=== PATIENT | female | born 1975 | race Caucasian/White ===

== ENCOUNTER 2016-12-27 04:20 | Inpatient (IN) | payer OTHER, MEDICARE ==
[~2016-12-27] VITALS: Ht 162.6 cm; Wt 100.8 kg
[2016-12-27] VITALS (24 sets, daily range): BP systolic 66–152; BP diastolic 28–82; PULSE 89–109; RESP 16–24; TEMP 98–101.1; O2SAT 89–100
[2016-12-27] MEDS ORDERED: NALOXONE HCL 2 MG/2 ML VIAL ONE ×3 (04:24→04:27)
[2016-12-27] MEDS ORDERED: DOPamine INJ PREMIX 500 ML ONE (04:28)
[2016-12-27] MEDS ORDERED: DOPamine INJ PREMIX 500 ML IV ONE (05:00)
[2016-12-27] MEDS ORDERED: DEXTROSE 50% IN WATER 50 ML SYRINGE IV ONE (05:00)
[2016-12-27] MEDS ORDERED: EPINEPHrine HCL (1:10,000) 1 MG/10 ML SYRINGE IV ONE (05:00)
[2016-12-27] MEDS ORDERED: SODIUM CHLORIDE 0.9% FLUSH 10 ML FLUSH IVF PRN (05:15)
[2016-12-27 05:36] LABS: AUTOMATED NEUTROPHIL # 8.6 TH/MM3 (1.8-7.7); BASOPHIL % 0.2 % (0.0-2.0); HEMATOCRIT 34.5 % (35.0-46.0); HEMOGLOBIN 10.9 GM/DL (11.6-15.3); INTERNATIONAL NORMALIZED RATIO 1.8 RATIO; LYMPHOCYTE # 1.8 TH/MM3 (1.0-4.8); MEAN CELL VOLUME 85.9 FL (80.0-100.0); MEAN CORPUSCULAR HEMOGLOBIN 27.1 PG (27.0-34.0); MEAN CORPUSCULAR HGB CONC 31.6 % (32.0-36.0); MEAN PLATELET VOLUME 8.6 FL (7.0-11.0); MONO % 7.2 % (0.0-8.0); MONOCYTE # 0.8 TH/MM3 (0-0.9); NEUT % 76.6 % (16.0-70.0); PLATELET COUNT 136 TH/MM3 (150-450); PROTHROMBIN TIME - PATIENT 20.6 SEC (9.8-11.6); RED BLOOD COUNT 4.02 MIL/MM3 (4.00-5.30); RED CELL DISTRIBUTION WIDTH 15.9 % (11.6-17.2); WHITE BLOOD COUNT 11.2 TH/MM3 (4.0-11.0)
[2016-12-27 05:40] LABS: BACTERIA, URINE RARE /hpf; BILIRUBIN, URINE NEG (NEG); BLOOD, URINE MOD (NEG); GLUCOSE,URINE NEG (NEG); HYALINE CAST, URINE 9 /lpf (RARE); KETONE, URINE NEG (NEG); NITRITE,URINE NEG (NEG); SQUAMOUS EPITHELIAL CELL URINE 2 /hpf (0-5); URINE COLOR YELLOW (YELLW/STRAW); URINE LEUKOCYTE ESTERASE NEG (NEG)
--- NOTE | 2016-12-27 05:57 | RADRPT ---
EXAM DATE/TIME: 12/27/2016 05:11 [facility] COMPARISON: No previous studies available for comparison. INDICATIONS : Pt found unresponsive. Post Intubation MEDICAL HISTORY : Unobtainable SURGICAL HISTORY : Unobtainable ENCOUNTER: Initial ACUITY: 1 day PAIN SCORE: Non-responsive. LOCATION: Bilateral chest FINDINGS: A single view of the chest demonstrates the lungs to be symmetrically aerated without evidence of mas s, infiltrate or effusion. An endotracheal tube is in place with the tip approximately a nasogastric tube is seen coursing through the esophagus into the stomach. There are multiple overlying electrocar diogram leads. The cardiomediastinal contours are unremarkable. Osseous structures are intact. CONCLUSION: 1. Intubation and placement of nasogastric tube. 2. No acute cardiopulmonary disease. Daron Humphrey MD on December 27, 2016 at 5:55 Board Certified Radiologist. This report was verified electronically.
[2016-12-27 06:01] LABS: ACETAMINOPHEN 5.3 MCG/ML (10.0-30.0); ALBUMIN 2.6 GM/DL (3.4-5.0); ALKALINE PHOSPHATASE 135 U/L (45-117); ALT (GPT) 742 U/L (10-53); AST (GOT) 1646 U/L (15-37); BICARBONATE 21.9 MEQ/L (21.0-32.0); BLOOD UREA NITROGEN 16 MG/DL (7-18); CALCIUM-PROTEIN CORRECTED 7.8 MG/DL (8.5-10.1); CHLORIDE 106 MEQ/L (98-107); CREATININE 3.39 MG/DL (0.50-1.00); GLOMERULAR FILTRATION RATE 12 ML/MIN (>89); SODIUM (NA) 141 MEQ/L (136-145); TOTAL BILIRUBIN ADULT 0.2 MG/DL (0.2-1.0); TOTAL PROTEIN 5.5 GM/DL (6.4-8.2)
[2016-12-27 06:04] LABS: GLUCOSE,RANDOM 28 MG/DL (74-106)
[2016-12-27] MEDS ORDERED: DEXT 5%-NACL 0.9% 1000 ML INJ 1,000 ML IV SCH (06:15)
--- NOTE | 2016-12-27 06:36 | RADRPT ---
EXAM DATE/TIME: 12/27/2016 05:53 [facility] COMPARISON: No previous studies available for comparison. INDICATIONS : Altered mental status. Found unresponsive. RADIATION DOSE: <15.51>> CTDIvol (mGy) MEDICAL HISTORY : Substance abuse. SURGICAL HISTORY : None. ENCOUNTER: Initial ACUITY: 1 day PAIN SCALE: Non-responsive LOCATION: cranial TECHNIQUE: Multiple contiguous axial images were obtained of the head. Using automated exposure control and adj ustment of the mA and/or kV according to patient size, radiation dose was kept as low as reasonably a chievable to obtain optimal diagnostic quality images. DICOM format image data is available electro nically for review and comparison. FINDINGS: CEREBRUM: The ventricles are normal for age. No evidence of midline shift, mass lesion, hemorrhage or acute in farction. No extra-axial fluid collections are seen. POSTERIOR FOSSA: The cerebellum and brainstem are intact. The 4th ventricle is midline. The cerebellopontine angle i s unremarkable. EXTRACRANIAL: The visualized portion of the orbits is intact. SKULL: The calvaria is intact. No evidence of skull fracture. CONCLUSION: Normal examination. Daron Humphrey MD on December 27, 2016 at 6:34 Board Certified Radiologist. This report was verified electronically.
--- NOTE | 2016-12-27 06:40 | PD ---
HPI Chief Complaint: OD/ Ingestion Time Seen by Provider: 05:06 Travel History International Travel<30 days: No Contact w/Intl Traveler<30days: No Traveled to known affect area: No History of Present Illness HPI Young adult female presents to the emergency department from home by EMS transport after family member found her face down in bed and then several hours later rechecked on her again and she remained facedown in bed and was noted to have saliva and possible stomach contents about her mouth. Paramedics were called and found the patient to be unresponsive and with agonal respirations with palpable faint pulse and immediately intubated the patient. Patient was transported to the emergency department with a right external jugular IV access and intubation. Paramedics report no rhythm disturbance by cardiac monitoring en route. Patient with history of IV drug/substance abuse. Unknown possible substance ingestion. Other history not available. [facility] Past Medical History Narrative Medical Unknown Medical History: Unable to Obtain Tetanus Vaccination: Unknown Influenza Vaccination: No ?: Unknown Past Surgical History Surgical History: Unable to Obtain Social History Alcohol Use: No Tobacco Use: No Substance Use: Yes Allergies-Medications (Allergen,Severity, Reaction): Coded Allergies: No Known Allergies (Unverified , 12/27/16) Narrative Medication Unknown Review of Systems ROS Limitations: Clinical Condition, Intubated, Unresponsive Except as stated in HPI: all other systems reviewed are Neg Physical Exam Narrative GENERAL: Well-developed well-nourished female unresponsive, intubated; GCS 3 SKIN: Cool and dry. HEAD: Normocephalic. Atraumatic no scalp soft tissue swelling or ecchymosis or abrasion or laceration. EYES: No scleral icterus. No injection or drainage. Bilateral pupils dilated nonreactive NECK: Supple, trachea midline. No JVD or lymphadenopathy. CARDIOVASCULAR: Regular rate and rhythm without murmurs, gallops, or rubs. RESPIRATORY: Breath sounds equal bilaterally heard with AMBU assisted ventilations bilaterally. GASTROINTESTINAL: Abdomen soft, nondistended. No gastric sounds with AMBU assisted ventilations. MUSCULOSKELETAL: No cyanosis, or edema. Data Data Last Documented VS Vital Signs Date Time Temp Pulse Resp B/P (MAP) Pulse Ox O2 Delivery O2 Flow Rate FiO2 12/27/16 05:10 100 60 12/27/16 05:05 16 Ventilator 12/27/16 05:00 89 12/27/16 04:20 15.00 Orders Orders Naloxone Inj (Narcan Inj) (12/27/16 04:24) Naloxone Inj (Narcan Inj) (12/27/16 04:24) Naloxone Inj (Narcan Inj) (12/27/16 04:27) Dopamine Inj Premix (Dopamine Inj Premix (12/27/16 04:28) Electrocardiogram (12/27/16 05:08) Complete Blood Count With Diff (12/27/16 05:08) Comprehensive Metabolic Panel (12/27/16 05:08) Prothrombin Time / Inr (Pt) (12/27/16 05:08) Act Partial Throm Time (Ptt) (12/27/16 05:08) Urinalysis - C+S If Indicated (12/27/16 05:08) Chest, Single Ap (12/27/16 05:08) Ct Brain W/O Iv Contrast(Rout) (12/27/16 05:08) Arterial Blood Gas (Abg) (12/27/16 05:08) Blood Glucose (12/27/16 05:08) Iv Access Insert/Monitor (12/27/16 05:08) Ecg Monitoring (12/27/16 05:08) Oximetry (12/27/16 05:08) Sodium Chloride 0.9% Flush (Ns Flush) (12/27/16 05:15) Drug Screen, Random Urine (12/27/16 05:08) Alcohol (Ethanol) (12/27/16 05:08) Salicylates (Aspirin) (12/27/16 05:08) Tylenol (Acetaminophen) (12/27/16 05:08) Propofol 1000 Mg/100 Ml Inj (Diprivan 10 (12/27/16 05:15) Neurological Rass Scale Q30MX2,Q2HX4,Q4H (12/27/16 05:08) Admit Order (Ed Use Only) (12/27/16 ) Calciner Operator Helper / Telemetry RADHA.Q8H (12/27/16 05:45) Activity Bed Rest (12/27/16 05:45) Notify Dr: Other (12/27/16 05:45) Labs Laboratory Tests Test 12/27/16 04:56 12/27/16 05:10 Blood Gas Ventilator Setting White Blood Count 11.2 TH/MM3 Red Blood Count 4.02 MIL/MM3 Hemoglobin 10.9 GM/DL Hematocrit 34.5 % Mean Corpuscular Volume 85.9 FL Mean Corpuscular Hemoglobin 27.1 PG Mean Corpuscular Hemoglobin Concent 31.6 % Red Cell Distribution Width 15.9 % Platelet Count 136 TH/MM3 Mean Platelet Volume 8.6 FL Neutrophils (%) (Auto) 76.6 % Lymphocytes (%) (Auto) 16.0 % Monocytes (%) (Auto) 7.2 % Eosinophils (%) (Auto) 0.0 % Basophils (%) (Auto) 0.2 % Neutrophils # (Auto) 8.6 TH/MM3 Lymphocytes # (Auto) 1.8 TH/MM3 Monocytes # (Auto) 0.8 TH/MM3 Eosinophils # (Auto) 0.0 TH/MM3 Basophils # (Auto) 0.0 TH/MM3 CBC Comment AUTO DIFF Differential Comment AUTO DIFF CONFIRMED Prothrombin Time 20.6 SEC Prothromb Time International Ratio 1.8 RATIO Activated Partial Thromboplast Time 37.8 SEC Urine Color YELLOW Urine Turbidity HAZY Urine pH 6.0 Urine Specific [place] 1.011 Urine Protein 30 mg/dL Urine Glucose (UA) NEG mg/dL Urine Ketones NEG mg/dL Urine Occult Blood MOD Urine Nitrite NEG Urine Bilirubin NEG Urine Urobilinogen LESS THAN 2.0 MG/DL Urine Leukocyte Esterase NEG Urine RBC LESS THAN 1 /hpf Urine WBC 4 /hpf Urine Squamous Epithelial Cells 2 /hpf Urine Bacteria RARE /hpf Urine Hyaline Casts 9 /lpf Microscopic Urinalysis Comment CULT NOT INDICATED Blood Urea Nitrogen 16 MG/DL Creatinine 3.39 MG/DL Random Glucose 28 MG/DL Total Protein 5.5 GM/DL Albumin 2.6 GM/DL Calcium Level 7.0 MG/DL Alkaline Phosphatase 135 U/L Aspartate Amino Transf (AST/SGOT) 1646 U/L Alanine Aminotransferase (ALT/SGPT) 742 U/L Total Bilirubin 0.2 MG/DL Sodium Level 141 MEQ/L Potassium Level 5.5 MEQ/L Chloride Level 106 MEQ/L Carbon Dioxide Level 21.9 MEQ/L Anion Gap 13 MEQ/L Estimat Glomerular Filtration Rate 12 ML/MIN Protein Corrected Calcium 7.8 MG/DL Salicylates Level 2.7 MG/DL Urine Opiates Screen NEG Acetaminophen Level 5.3 MCG/ML Urine Barbiturates Screen POS Urine Amphetamines Screen NEG Urine Benzodiazepines Screen POS Urine Cocaine Screen NEG Urine Cannabinoids Screen NEG Ethyl Alcohol Level LESS THAN 3 MG/DL MDM Medical Decision Making Medical Screen Exam Complete: Yes Emergency Medical Condition: Yes Medical Record Reviewed: Yes Interpretation(s) Last Impressions Head CT 12/27/16507 Signed Impressions: Service Date/Time: Tuesday, December 27, 2016 05:53 - CONCLUSION: Normal examination. Daron Humphrey MD Chest X-Ray 12/27/16507 Signed Impressions: Service Date/Time: Tuesday, December 27, 2016 05:11 - CONCLUSION: 1. Intubation and placement of nasogastric tube. 2. No acute cardiopulmonary disease. Daron Humphrey MD CBC & BMP Diagram 12/27/16 05:10 Total Protein 5.5 L, Albumin 2.6 L, Calcium Level 7.0 *L, Alkaline Phosphatase 135 H, Aspartate Amino Transf (AST/SGOT) 1646 H, Alanine Aminotransferase (ALT/ SGPT) 742 H, Total Bilirubin 0.2 Vital Signs Date Time Temp Pulse Resp B/P (MAP) Pulse Ox O2 Delivery O2 Flow Rate FiO2 12/27/16 05:10 100 60 12/27/16 05:05 16 98 Ventilator 100 12/27/16 05:00 89 18 152/82 (105) Ventilator 100 12/27/16 04:45 96 18 145/73 (97) Ventilator 100 12/27/16 04:30 98 18 95/50 (65) Ventilator 100 12/27/16 04:25 97 100 12/27/16 04:20 66/28 (41) 12/27/16 04:20 Bag Valve 15.00 Differential Diagnosis Respiratory arrest, arrhythmia, polysubstance overdose intentional versus unintentional, hypoglycemia, hypovolemic shock, septic shock Narrative Course Patient patient arrived intubated via EMS personnel while on EMS stretcher breath sounds were auscultated bilaterally without gastric sounds and patient was transferred to the ED stretcher again with good breath sounds to auscultation and no gastric sounds; patient in sinus rhythm on youth nutritional monitor however no palpable pulse carotid or femoral therefore compressions were initiated patient was administered 1 amp of epinephrine IV with ongoing compressions, 2 mg of Narcan administered and subsequently palpable pulses were noted however patient remained hypotensive dopamine initiated; additional IV access obtained via the left external jugular and central line set up for insertion. Patient was also noted to have bedside glucose of 30 and received 1 amp of D50. Patient showed spontaneous withdrawing movement. Central line insertion performed and placed in the right femoral vein ABG left femoral artery showed patient to have pH of 7.18 with PO2 of 455 and PCO2 35 Lab notified staff serum glucose 28 patient already received 1 amp D50 during resuscitative efforts repeat glucose 119 Critical Care Narrative Aggregate critical care time was 35 minutes. Time to perform other separately billable procedures was not included in the critical care time. My time did not include minutes spent treating any other patients simultaneously or on activities that did not directly contribute to the patient's treatment. The services I provided to this patient were to treat and/or prevent clinically significant deterioration that could result in: arrhythmia, cardiac arrest, I provided critical care services requiring my management, as noted below: Chart data review, documentation time, medication orders and management, vital sign assessments/reviewing monitor data, ordering and reviewing lab tests, ordering and interpreting/reviewing x-rays and diagnostic studies, care of the patient and discussion of the patient with the admitting physicians. Procedures Procedure Narrative CENTRAL VENOUS LINE: The site was prepped with Betadine and sterilely draped. It was infiltrated with 1% lidocaine plain. The deep vein was cannulated using normal Seldinger technique. A triple lumen central line was placed in the right femoral vein site and secured with simple interrupted suture. The site was sterilely dressed. The patient tolerated the procedure well. EKG Prior to Arrival: No Physician Communication Physician Communication Patient discussed with Dr. Jarrett-admit to ICU service Diagnosis Primary Impression: Respiratory arrest Additional Impressions: Polysubstance overdose Qualified Codes: T50.904A - Poisoning by unspecified drugs, medicaments and biological substances, undetermined, initial encounter Hypoglycemia Acute metabolic encephalopathy Acute kidney injury Admitting Information Admitting Physician Requests: Admit Doretha Moncada MD Dec 27, 2016 06:40
[2016-12-27] MEDS ORDERED: TERBUTALINE INJ 1 MG/ML AMP SQ PRN ×2 (07:00→11:00)
[2016-12-27] MEDS ORDERED: DOPamine INJ PREMIX 500 ML IV PRN (07:00)
[2016-12-27] MEDS ORDERED: NALOXONE HCL 2 MG/2 ML VIAL IV PUSH ONE (07:00)
[2016-12-27] MEDS ORDERED: SODIUM CHLOR 0.9% 1000 ML INJ 1,000 ML IV STA (07:14)
[2016-12-27] MEDS ORDERED: CHLORHEXIDINE GLUCONATE 2 % 1 PACK (2 CLOTHS) TOP PRN (07:15)
[2016-12-27] MEDS ORDERED: RESP: ALBUTEROL 2.5 MG/IPRATROPIUM 0.5 MG NEB (PRN) INH (07:15)
[2016-12-27] MEDS ORDERED: MISCELLANEOUS NURSING INFORMATION XX SCH (07:15)
[2016-12-27] MEDS ORDERED: SODIUM CHLOR 0.9% 1000 ML INJ 1,000 ML IV ONE ×3 (07:15→11:00)
[2016-12-27] MEDS ORDERED: SODIUM CHLORIDE 0.9% FLUSH 10 ML FLUSH IV FLUSH PRN (07:15)
[2016-12-27] MEDS ORDERED: CALCIUM GLUCONATE INJ 2 GM in DEXTROSE 5% IN WATER 100ML INJ 100 ML IV ONE ×2 (07:30)
[2016-12-27] MEDS: PROPOFOL 1000 MG/100 ML INJ 100 ML IV PRN (08:00)
[2016-12-27] MEDS ORDERED: FAMOTIDINE 20 MG TAB OG-TUBE SCH (09:00)
[2016-12-27] MEDS ORDERED: PILL SPLITTER OTHER PRN (09:15)
[2016-12-27] MEDS ORDERED: DEXTROSE 50% IN WATER 50 ML VIAL(D50) IV PUSH PRN (09:30)
[2016-12-27] MEDS ORDERED: GLUCAGON 1 MG/ML VIAL OTHER PRN (09:30)
[2016-12-27] MEDS: RESP: ALBUTEROL 2.5 MG/IPRATROPIUM 0.5 MG NEB (SCH) NEB ×3 (09:35→20:11)
[2016-12-27] MEDS: INSULIN NovoLIN REGULAR SUPPLEMENTAL SCALE SQ SCH ×7 (10:00→22:00)
[2016-12-27] MEDS: SODIUM POLYSTYRENE SULFONATE SUSP 15 GM/60 ML CUP OG-TUBE SCH ×4 (10:03→15:17)
[2016-12-27] MEDS: SODIUM CHLORIDE 0.9% FLUSH 10 ML FLUSH IV FLUSH SCH ×2 (10:03→21:25)
[2016-12-27] MEDS: FAMOTIDINE 20 MG TAB OG-TUBE SCH ×2 (10:05→21:23)
[2016-12-27] MEDS: CHLORHEXIDINE 0.12% (ORAL KIT) 15 ML CUP MT SCH ×2 (10:07→21:23)
[2016-12-27 10:10] LABS: AUTOMATED NEUTROPHIL # 20.2 TH/MM3 (1.8-7.7); BASOPHIL % 0.1 % (0.0-2.0); HEMATOCRIT 43.2 % (35.0-46.0); HEMOGLOBIN 13.9 GM/DL (11.6-15.3); LYMPH % 12.4 % (9.0-44.0); LYMPHOCYTE # 3.1 TH/MM3 (1.0-4.8); MEAN CELL VOLUME 84.5 FL (80.0-100.0); MEAN CORPUSCULAR HEMOGLOBIN 27.2 PG (27.0-34.0); MEAN CORPUSCULAR HGB CONC 32.2 % (32.0-36.0); MEAN PLATELET VOLUME 8.9 FL (7.0-11.0); MONO % 5.7 % (0.0-8.0); MONOCYTE # 1.4 TH/MM3 (0-0.9); NEUT % 81.8 % (16.0-70.0); PLATELET COUNT 161 TH/MM3 (150-450); RED BLOOD COUNT 5.11 MIL/MM3 (4.00-5.30); RED CELL DISTRIBUTION WIDTH 15.6 % (11.6-17.2); WHITE BLOOD COUNT 24.7 TH/MM3 (4.0-11.0)
[2016-12-27 10:34] LABS: ALBUMIN 2.9 GM/DL (3.4-5.0); BICARBONATE 17.9 MEQ/L (21.0-32.0); CALCIUM 6.5 MG/DL (8.5-10.1); CREATININE 3.54 MG/DL (0.50-1.00)
--- NOTE | 2016-12-27 10:36 | MH ---
cc: IBAN CARTER DATE OF ADMISSION: 12/27/2016 HISTORY OF PRESENT ILLNESS The patient is a young adult female with unknown past medical history, who presented to [facility] ED by EMS after family found her face down in bed for several hours. When paramedics arrived they found the patient unresponsive with agonal respirations and faint palpable pulse. She was immediately intubated and transported to the ED. She has a history of IV and polysubstance abuse. On arrival to the ER the patient was hypotensive and tachycardic. She was given total 3 liters of crystalloids. Her urine drug screen was positive for benzodiazepines and barbiturates. Her laboratory data is significant for hypoglycemia with a blood sugar level of 28, acute renal failure with creatinine 3.39. In addition the patient had significant elevation in liver enzymes with AST 1646, ALT 742 with a total bilirubin 0.2. Also she was found to be in rhabdo with total CKs of 10,574. Her blood sugar fingerstick in the ED was 33 and she was subsequently given 1 amp of D50. In the ER the patient did not have a pulse and she received 1 minute of CPR in addition to epi x1 with successful return of spontaneous circulation. When seen she was able to open up her eyes to voice. Due to hypotension she was started on dopamine which is currently at 10 mics. The patient also received 2 mg IV of Narcan. PAST MEDICAL HISTORY Unknown. PAST SURGICAL HISTORY Unknown. ALLERGIES NO KNOWN DRUG ALLERGIES. SOCIAL HISTORY History of polysubstance abuse. MEDICATION Reported medications: Unknown. REVIEW OF SYSTEMS Unobtainable. PHYSICAL EXAMINATION GENERAL: The patient is a young adult female who is intubated and on dopamine. VITAL SIGNS: Temperature 98.0, pulse of 93, blood pressure 92/50 and saturation 100%. Vent setting PRVC rate of 16, tidal volume 500. I time 0.9, PEEP 5, FIO2 60%. HEENT: Atraumatic, normocephalic. Pupils equal, round and reactive to light and accommodation. Extraocular muscles intact. Conjunctivae pink. Nonicteric sclerae. Oral mucosa within normal. NECK: Supple. No JVD, adenopathy or thyromegaly. Trachea midline. CARDIOVASCULAR: Regular rate and rhythm. Normal S1-S2. No murmurs, rubs or gallops noted. PULMONARY: Bilateral equal air entry. No rales or wheezing. ABDOMEN: Soft, nontender, no distension. Positive bowel sounds. EXTREMITIES: No cyanosis, clubbing or edema. NEURO: Intubated. Responds to voice. LABORATORY DATA Sodium 141, potassium 5.5, chloride 106, CO2 21, BUN 16, creatinine 3.39, glucose of 28, corrected calcium 7.8 and total bilirubin 0.2, AST 1646, ALT 742, alk phos 135, total CK 10,574, total protein 5.5, albumin 2.6, WBC 11.2, hemoglobin 10.9, hematocrit 34, platelet count of 136, INR 1.8, PT 20.6, PTT 37.8. Urine drug screen positive for barbiturates, benzodiazepines, Tylenol level 5.3, aspirin level 2.7. Alcohol level less than 3. RADIOGRAPHIC STUDIES CT scan of the brain, no acute intracranial findings. Chest x-ray, no acute cardiopulmonary disease. IMPRESSION 1. Vent dependent respiratory failure. 2. Altered mental status. 3. Polysubstance abuse. 4. Rhabdomyolysis. 5. Acute kidney injury. 6. Elevated liver enzymes. 7. Hypoglycemia. 8. Anemia. RECOMMENDATIONS 1. Monitor neuro status closely and avoid any sedatives. CT scan of the brain in the ER negative for acute intracranial process and her urine drug screen was positive for barbiturates and benzodiazepines. Will check ammonia level. 2. Continue vent support and maintain sats above 92%. 3. Bronchodilators in the form of DuoNeb q. 6 and will initiate ICU vent bundle. 4. Check ABG post intubation. A chest x-ray showed no evidence of any acute disease. 5. Wean off dopamine, monitor heart rate and blood pressure closely and maintain MAP greater than 65 mmHg. She was given 3 liters of crystalloids in the ED. We will check lactic acid level and continue with IV fluids in the form of D5 NS at 150 mL an hour. 6. Monitor renal function, I&O's and avoid nephrotoxins. IV fluids as stated above. Monitor CKs, in addition we will obtain ultrasound of the abdomen. 7. Place on Pepcid at 10 mg b.i.d. for GI prophylaxis. Monitor LFTs and will obtain an ultrasound of the liver and hepatitis profile. Will initiate tube feeds if CT scan of the abdomen is negative for acute findings. 8. Monitor for signs of infections which include fever and WBC. Will hold off on antibiotics at this time. Panculture if spikes a fever. A chest x-ray in the ED negative for acute cardiopulmonary disease. A urinalysis is negative for UTI. 9. Monitor CBC and coagulation. INR is 1.[address] on sliding scale insulin with Accu-Chek q. 2-hour and continue with D5 NS at 150 mL an hour. 11. GI prophylaxis with Pepcid 10 mg b.i.d. and DVT prophylaxis with SCDs. Will hold off on chemical anticoagulation prophylaxis for now. 12. Right femoral central line was placed in the ED by the ED physician. 13. Will repeat labs now which include CBC and CMP. 14. Further recommendations will be based on hospital course. 15. The patient is critically ill with respiratory failure, altered mental status, renal failure, elevated liver enzymes. Critical care time 40 minutes excluding procedures. MD PAUL Hu/JEANNA /9:35 AM /10:10 AM
[2016-12-27 10:50] LABS: TOTAL BILIRUBIN ADULT 0.4 MG/DL (0.2-1.0); TOTAL PROTEIN 6.2 GM/DL (6.4-8.2)
[2016-12-27 10:52] LABS: BANDS 25 % (0-6); CORRECTED NUCLEATED RBC 1 /100 WBC (0-0); LYMPHOCYTES 16 % (9-44); METAMYELOCYTES 1 % (0-1); MONOCYTES 3 % (0-8); NUCLEATED RED BLOOD CELL 1 (0-0); POLYS (SEG NEUTROPHILS) 55 % (16-70)
[2016-12-27 10:55] LABS: CALCIUM-PROTEIN CORRECTED 6.9 MG/DL (8.5-10.1)
[2016-12-27] MEDS ORDERED: DEXTROSE 50% IN WATER 50 ML SYRINGE IV PUSH ONE (11:00)
[2016-12-27] MEDS ORDERED: CALCIUM GLUCONATE INJ 1 GM in DEXTROSE 5% IN WATER 100ML INJ 100 ML IV ONE ×2 (11:00)
[2016-12-27] MEDS: NOREPINEPHRINE-DEXTROSE DRIP 250 ML IV PRN ×2 (11:00→13:06)
[2016-12-27] MEDS ORDERED: INSULIN HUMAN REGULAR 1,000 UNITS/10 ML VIAL IV PUSH ONE (11:00)
[2016-12-27] MEDS ORDERED: SODIUM BICARBONATE 8.4% INJ 50 MEQ/50 ML SYR IV PUSH ONE (11:00)
[2016-12-27] MEDS ORDERED: SODIUM BICARBONATE 8.4% INJ 50 ML ONE (12:03)
--- NOTE | 2016-12-27 12:12 | RADRPT ---
EXAM DATE/TIME: 12/27/2016 10:52 [facility] COMPARISON: No previous studies available for comparison. INDICATIONS : Acute renal failure. Elevated labe values. MEDICAL HISTORY : Substance abuse. Unable to obtain further medical history. SURGICAL HISTORY : Unable to obtain surgical history. ENCOUNTER: Initial ACUITY: 1 day PAIN SCORE: Nonresponsive. LOCATION: Abdomen. MEASUREMENTS: LIVER: 16.8 cm length COMMON DUCT: 5 mm RIGHT KIDNEY: 11.6 x 5.6 x 4.1 cm LEFT KIDNEY: 11.2 x 5.9 x 4.5 cm SPLEEN: 13.1 cm length AORTA: 1.9cm maximal FINDINGS: LIVER: Normal echotexture without focal lesion or ductal dilatation. There is a small amount of fluid seen a round the liver. COMMON DUCT: No intraluminal mass or stone visualized. GALLBLADDER: Gallstones are not seen. Gallbladder wall is thickened measuring 12 mm. PANCREAS: The visualized portions are within normal limits. RIGHT KIDNEY: The right kidney appears echogenic. No hydronephrosis seen. There is perinephric fluid. LEFT KIDNEY: The left kidney appears echogenic. No hydronephrosis is seen. SPLEEN: Spleen is mildly enlarged measuring 13 cm in length. AORTA: Non aneurysmal. IVC: Within normal limits. CONCLUSION: 1. Echogenic kidneys which can be seen with medical renal disease. 2. Gallbladder wall thickening. Gallstones are not seen. This is nonspecific. Processes such as acalc ulus cholecystitis or diffuse hepatic disease can lead to thickening of the gallbladder wall. 3. Mild ascites. Jae Hines MD on December 27, 2016 at 12:07 Board Certified Radiologist. This report was verified electronically.
[2016-12-27] MEDS: LACTULOSE SYRUP 20 GM/30 ML CUP PO SCH ×2 (12:27→21:23)
[2016-12-27] MEDS: SODIUM BICARBONATE 8.4% INJ 150 MEQ in DEXTROSE 5% IN WATE 1000ML INJ 1,000 ML IV SCH ×4 (13:57→21:24)
[2016-12-27] MEDS: PIPERACIL-TAZO 4.5 GM PREMIX 100 ML IV SCH ×2 (13:57→19:23)
--- NOTE | 2016-12-27 15:22 | MB ---
cc: CARLITO GOODE MD DATE OF CONSULTATION: 12/27/2016. REASON FOR CONSULTATION: Elevated BUN and creatinine for evaluation. HISTORY OF PRESENT ILLNESS: This is a 36-year-old female with past medical history of possible seizure disorder, history of polysubstance abuse who was brought to the hospital by EMS when she was found unresponsive. I was called to see the patient because of elevated BUN and creatinine. Her creatinine on admission was 3.3 and now it is 3.5 and also she has high potassium of 6.5. The patient is intubated and she is not able to give any history. Most of the history was taken from the patient's chart and some from the mother who was at the bedside but she also does not know much about her medical history. The patient was found by her boyfriend unresponsive early in the morning and then the EMS was called and she was brought in here. The patient was found to have positive barbiturate and benzodiazepine in the urine. Her ethyl alcohol level was low. Her urine output is minimal and the patient has hypotension. Her blood pressure on presentation was 66/28. The patient is currently on Norepinephrine. PAST MEDICAL HISTORY: 1. Possible seizure disorder. 2. History of polysubstance abuse. PAST SURGICAL HISTORY: None. REVIEW OF SYSTEMS: A review of systems cannot be taken since she is intubated. FAMILY HISTORY: The family history is noncontributory. ALLERGIES: SHE HAS NO KNOWN DRUG ALLERGIES. MEDICATIONS: Currently she is on: 1. IV fluids with sodium bicarbonate ordered at 150 an hour. 2. Pepcid 10 milligrams twice a day. 3. Lactulose 15 mL twice a day. 4. DuoNeb nebulizer. 5. Sliding scale insulin. 6. Kayexalate 30 grams q. 2 hours. 7. Zosyn 4.5 grams IV q. 8 hours. 8. Propofol as needed. PHYSICAL EXAMINATION: GENERAL: On examination, the patient is intubated. She is on sedation. VITAL SIGNS: Her last blood pressure was 85/49, temperature is 98, pulse of 100. She is on FIO2 of 40%. HEAD, EYES, EARS, NOSE, THROAT: The pupils are mid-constricted. Nonicteric sclerae. Conjunctivae are pale. NECK: The neck is supple. JVD is not elevated. LUNGS: The patient has bilateral decreased air entry with scattered wheezing. HEART: S1 and S2 regular rhythm. ABDOMEN: Abdomen distended, soft and lax. There is no tenderness. Bowel sounds positive. EXTREMITIES: She has mild edema in the legs. INVESTIGATIONS: White blood cell count is 24.7, hemoglobin 13.9 with platelet count of 161,000. Neutrophils 81.8%. Sodium 136, potassium 6.5, chloride 105, bicarbonate 17.9, BUN 23, creatinine 3.54, lactic acid is 5.9, calcium is 6.5 with corrected calcium of 6.9. AST is 6281. ALT is 2564. Creatine kinase was 10,574. Total protein is 6.2 with albumin of 2.9. INR 1.8. Urinalysis showing protein of 30. Toxicology screen was positive for barbiturates and benzodiazepines. Salicylate and acetaminophen level was low. Ethyl alcohol level was less than 3. Urinalysis showing protein of 30. Blood cultures are pending. IMAGING STUDIES: The patient had a CT scan of the brain on admission which shows normal examination. Abdominal ultrasound was done which shows both kidneys are normal in size, echogenic gallbladder wall thickening, gallstone not seen, mild ascites. Chest x-ray was done which shows intubation and no acute lung lesion. ASSESSMENT: 1. Acute kidney injury. 2. Hypotension and shock status. 3. Respiratory failure. 4. Shock liver. 5. Hyperkalemia and lactic acidosis. 6. Drug overdose. The patient has multiorgan failure with hypotension and shock status and severe metabolic acidosis and hyperkalemia. She is getting treatment of hyperkalemia and also getting bicarbonate. So far, the urine output is low. She is on pressors. The acute kidney injury is most likely because of rhabdomyolysis or possibility of acute tubular necrosis from the hypotension. If her urine output does not improve, it is possible the patient will need dialysis. This was discussed with her mother at the bedside. Follow the urine output. Continue the IV fluids. Add antibiotics. Thank you for the consultation, and I will follow the patient while she is in the hospital. MD SERJIO Rocha/GUILLE /2:09 PM /3:07 PM
[2016-12-27] MEDS ORDERED: HEPARIN-D5W 25,000 U/250 ML 250 ML IV PRN (15:30)
[2016-12-27] MEDS ORDERED: Vancomycin Consult Pharmacy 1 EA OTHER SCH (15:45)
[2016-12-27] MEDS ORDERED: VANCOMYCIN INJ 1,000 MG in SODIUM CHLOR 0.9% 250 ML INJ 250 ML IV ONE (16:00)
[2016-12-27 16:32] LABS: HEMATOCRIT 36.9 % (35.0-46.0); HEMOGLOBIN 11.9 GM/DL (11.6-15.3); MEAN CORPUSCULAR HEMOGLOBIN 26.7 PG (27.0-34.0); MEAN CORPUSCULAR HGB CONC 32.2 % (32.0-36.0); PLATELET COUNT 153 TH/MM3 (150-450); RED BLOOD COUNT 4.44 MIL/MM3 (4.00-5.30); RED CELL DISTRIBUTION WIDTH 15.4 % (11.6-17.2); WHITE BLOOD COUNT 15.8 TH/MM3 (4.0-11.0)
[2016-12-27] MEDS: ASPIRIN 325 MG TAB PO SCH (16:36)
--- NOTE | 2016-12-27 16:40 | MB ---
cc: CHRISTIAN PEÑALOZA MD DATE OF CONSULTATION: 12/27/2016. REASON FOR CONSULTATION: Elevated troponin. HISTORY OF PRESENT ILLNESS: The patient is an approximately 44-year-old woman who came in as a Kely Arredondo but who has since been identified as Pamela Winn. The date of is not yet in the chart. She has been using IV drugs and was found unresponsive by her boyfriend. She was intubated and brought to the intensive care unit and her labs show multiple metabolic abnormalities including abnormal troponin. Thus, I was consulted. The patient has no apparent cardiac history. PAST MEDICAL HISTORY: Her past medical history is unclear. CURRENT MEDICATIONS: 1. Aspirin. 2. Heparin drip. 3. Zosyn. 4. Norepinephrine. ALLERGIES: UNKNOWN. PHYSICAL EXAMINATION: VITAL SIGNS: Afebrile, pulse 100, respiratory rate is 20, blood pressure is 85/49, satting 40% FIO2 on the ventilator. GENERAL: Intubated middle-aged woman. NECK: No jugular venous distention. LUNGS: Ventilator sounds heard. CARDIOVASCULAR: Regular rate and rhythm. No murmurs appreciated. ABDOMEN: Benign. EXTREMITIES: No edema. LABORATORY DATA: Sodium 136, potassium 6.5, chloride 105, bicarbonate 17.9, BUN 23, creatinine 3.54, lactic acid 5.5, calcium is 6.5. AST is 6200, ALT is 2500. Total CK is 45,000. CK-MB is 427. Troponin is 33. Toxicology is positive for barbiturates and benzodiazepines. White count 24.7, hematocrit 43.2, platelets 161,000. EKGS: EKG shows sinus tachycardia with diffuse nonspecific S-T changes. IMPRESSION: Elevated troponin. The patient's elevated troponin is most likely a sign of her drug overdose and prolonged severe hypoxia. Though a primary cardiac etiology cannot be excluded at this point in time, that would be fairly unusual for a woman of this age and given the rest of the picture, a secondary cardiac dysfunction seems more likely. An echocardiogram will be ordered to assess her left ventricular function. I think a heparin drip is reasonable until her troponin trends downward. If she makes meaningful neurologic recovery, an ischemic workup can be done at that time. Further recommendations will be based on the clinical course but primarily would recommend supportive care for her multiorgan system failure. Thank you again for the opportunity to participate in this patient's care. MD CURLY Hui/GUILLE /4:26 PM /4:30 PM
[2016-12-27 16:42] LABS: INTERNATIONAL NORMALIZED RATIO 1.8 RATIO
--- NOTE | 2016-12-27 17:26 | RADRPT ---
EXAM DATE/TIME: 12/27/2016 17:03 [facility] COMPARISON: No previous studies available for comparison. INDICATIONS : Lactic acidemia, leukocytosis. Evaluate for acute abdominal process. ORAL CONTRAST: No oral contrast ingested. RADIATION DOSE: 9.1 CTDIvol (mGy) MEDICAL HISTORY : None SURGICAL HISTORY : None. ENCOUNTER: Initial ACUITY: 1 day PAIN SCALE: Non-responsive LOCATION: abdomen TECHNIQUE: Volumetric scanning of the abdomen and pelvis was performed. Using automated exposure control and ad justment of the mA and/or kV according to patient size, radiation dose was kept as low as reasonably achievable to obtain optimal diagnostic quality images. DICOM format image data is available electro nically for review and comparison. FINDINGS: Breathing motion degraded. LOWER LUNGS: There is volume loss with consolidation and air bronchogram formation within the left lung base. Line ar atelectasis within the right lung base. LIVER: Homogeneous density without lesion. There is no dilation of the biliary tree. No calcified gallston es. SPLEEN: Normal size without lesion. PANCREAS: There is possible stranding surrounding the pancreas particularly at the level the pancreatic tail. N o fluid collection. No ductal dilatation. KIDNEYS: Normal in size and shape. There is no mass, stone, or hydronephrosis. ADRENAL GLANDS: Within normal limits. VASCULAR: There is no aortic aneurysm. BOWEL/MESENTERY: The nasogastric tube is coiled within the stomach. The stomach, small bowel, and colon demonstrate no acute abnormality. There is no free intraperitoneal air. A trace amount of free fluid within the ab domen and pelvis. ABDOMINAL WALL: Within normal limits. RETROPERITONEUM: There is no lymphadenopathy. BLADDER: No wall thickening or mass. REPRODUCTIVE: Within normal limits. INGUINAL: There is no lymphadenopathy or hernia. MUSCULOSKELETAL: Within normal limits for patient age. CONCLUSION: 1. Examination is degraded by breathing motion artifact. 2. Concern for inflammatory process involving the pancreas. No pseudocyst or ductal dilatation observ ed. 3. Trace amount ascites. 4. Left lower lobe consolidation. 5. Right basilar atelectasis. Ambrosio Nevarez Jr., MD on December 27, 2016 at 17:22 Board Certified Radiologist. This report was verified electronically.
[2016-12-27] MEDS ORDERED: HEPARIN SODIUM - SQ 10,000 UNITS/ML VIAL SQ SCH (18:00)
[2016-12-28] VITALS (20 sets, daily range): BP systolic 75–118; BP diastolic 41–75; PULSE 96–122; RESP 16–24; TEMP 98.8–100.6; O2SAT 92–100
[2016-12-28] MEDS: INSULIN NovoLIN REGULAR SUPPLEMENTAL SCALE SQ SCH ×8 (02:00→18:00)
[2016-12-28] MEDS: SODIUM BICARBONATE 8.4% INJ 150 MEQ in DEXTROSE 5% IN WATE 1000ML INJ 1,000 ML IV SCH ×6 (03:20→21:57)
[2016-12-28] MEDS: RESP: ALBUTEROL 2.5 MG/IPRATROPIUM 0.5 MG NEB (SCH) NEB ×3 (03:23→20:42)
[2016-12-28] MEDS: CHLORHEXIDINE GLUCONATE 2 % 1 PACK (2 CLOTHS) TOP SCH (04:00)
[2016-12-28] MEDS: PIPERACIL-TAZO 2.25 GM PREMIX 50 ML IV SCH ×4 (04:00→21:39)
[2016-12-28] MEDS: PROPOFOL 1000 MG/100 ML INJ 100 ML IV PRN ×2 (05:00→17:39)
[2016-12-28 05:56] LABS: AUTOMATED NEUTROPHIL # 16.5 TH/MM3 (1.8-7.7); BASOPHIL # 0.1 TH/MM3 (0-0.2); BASOPHIL % 0.4 % (0.0-2.0); EOSINOPHIL % 0.1 % (0.0-4.0); HEMATOCRIT 38.8 % (35.0-46.0); HEMOGLOBIN 12.8 GM/DL (11.6-15.3); LYMPH % 7.1 % (9.0-44.0); LYMPHOCYTE # 1.3 TH/MM3 (1.0-4.8); MEAN CELL VOLUME 83.1 FL (80.0-100.0); MEAN CORPUSCULAR HEMOGLOBIN 27.5 PG (27.0-34.0); MEAN PLATELET VOLUME 9.5 FL (7.0-11.0); MONO % 3.2 % (0.0-8.0); MONOCYTE # 0.6 TH/MM3 (0-0.9); NEUT % 89.2 % (16.0-70.0); PLATELET COUNT 162 TH/MM3 (150-450); RED BLOOD COUNT 4.67 MIL/MM3 (4.00-5.30); RED CELL DISTRIBUTION WIDTH 15.9 % (11.6-17.2); WHITE BLOOD COUNT 18.5 TH/MM3 (4.0-11.0)
[2016-12-28 06:41] LABS: ALBUMIN 2.1 GM/DL (3.4-5.0); ALKALINE PHOSPHATASE 191 U/L (45-117); ALT (GPT) 3950 U/L (10-53); AST (GOT) 9813 U/L (15-37); BICARBONATE 23.4 MEQ/L (21.0-32.0); BLOOD UREA NITROGEN 36 MG/DL (7-18); CALCIUM 6.3 MG/DL (8.5-10.1); CHLORIDE 95 MEQ/L (98-107); CREATININE 4.93 MG/DL (0.50-1.00); GLOMERULAR FILTRATION RATE 10 ML/MIN (>89); GLUCOSE,RANDOM 126 MG/DL (74-106); SODIUM (NA) 135 MEQ/L (136-145); TOTAL BILIRUBIN ADULT 0.9 MG/DL (0.2-1.0); TOTAL PROTEIN 5.1 GM/DL (6.4-8.2)
[2016-12-28 07:08] LABS: CALCIUM-PROTEIN CORRECTED 7.3 MG/DL (8.5-10.1); TROPONIN I GREATER THAN 40.00 NG/ML (0.02-0.05)
--- NOTE | 2016-12-28 07:57 | HHI.CCPN ---
Subjective Remarks/Hospital Course Patient is a young adult female with unknown past medical history, who presented to [facility] ED by EMS after family found her face down in bed for several hours. When paramedics arrived they found the patient unresponsive with agonal respirations and faint palpable pulse. She was immediately intubated and transported to the ED. She has a history of IV and polysubstance abuse. On arrival to the ER the patient was hypotensive and tachycardic. She was given total 3 liters of crystalloids. Her urine drug screen was positive for benzodiazepines and barbiturates. Her laboratory data is significant for hypoglycemia with a blood sugar level of 28, acute renal failure with creatinine 3.39. In addition the patient had significant elevation in liver enzymes with AST 1646, ALT 742 with a total bilirubin 0.2. Also she was found to be in rhabdo with total CKs of 10,574. Her blood sugar fingerstick in the ED was 33 and she was subsequently given 1 amp of D50. In the ER the patient did not have a pulse and she received 1 minute of CPR in addition to epi x1 with successful return of spontaneous circulation. When seen she was able to open up her eyes to voice. Due to hypotension she was started on dopamine which is currently at 10 mics. The patient also received 2 mg IV of Narcan. 12/28: Patient remains sedated with Diprivan and intubated. Heparin drip started yesterday for Trop>30. Spiked fever with T: 101.1 last night. LFT's and renal function are worsening Cr:4.93 from 3.54. On bicarb drip. Objective Vital Signs Date Time Temp Pulse Resp B/P (MAP) Pulse Ox O2 Delivery O2 Flow Rate FiO2 12/28/16 04:47 98 50 12/28/16 02:00 98 12/28/16 00:00 100.6 16 108/75 (86) 12/27/16 07:10 Ventilator 12/27/16 04:20 15.00 Result Diagram: 12/28/16 0507 12/28/16 0507 Other Results Laboratory Tests Test 12/27/16 08:45 12/27/16 09:30 12/27/16 09:47 12/27/16 10:45 Nasal Screen MRSA (PCR) MRSA DETECTED Lactic Acid Level 5.9 mmol/L Ammonia 42 MCMOL/L White Blood Count 24.7 TH/MM3 Red Blood Count 5.11 MIL/MM3 Hemoglobin 13.9 GM/DL Hematocrit 43.2 % Mean Corpuscular Volume 84.5 FL Mean Corpuscular Hemoglobin 27.2 PG Mean Corpuscular Hemoglobin Concent 32.2 % Red Cell Distribution Width 15.6 % Platelet Count 161 TH/MM3 Mean Platelet Volume 8.9 FL Neutrophils (%) (Auto) 81.8 % Lymphocytes (%) (Auto) 12.4 % Monocytes (%) (Auto) 5.7 % Eosinophils (%) (Auto) 0.0 % Basophils (%) (Auto) 0.1 % Neutrophils # (Auto) 20.2 TH/MM3 Lymphocytes # (Auto) 3.1 TH/MM3 Monocytes # (Auto) 1.4 TH/MM3 Eosinophils # (Auto) 0.0 TH/MM3 Basophils # (Auto) 0.0 TH/MM3 CBC Comment AUTO DIFF Differential Total Cells Counted 100 Neutrophils % (Manual) 55 % Band Neutrophils % 25 % Lymphocytes % 16 % Monocytes % 3 % Neutrophils # (Manual) 20.0 TH/MM3 Metamyelocytes 1 % Nucleated Red Blood Cells 1 /100 WBC Differential Comment FINAL DIFF MANUAL Platelet Estimate NORMAL Platelet Morphology Comment NORMAL Blood Urea Nitrogen 23 MG/DL Creatinine 3.54 MG/DL Random Glucose 162 MG/DL Total Protein 6.2 GM/DL Albumin 2.9 GM/DL Calcium Level 6.5 MG/DL Alkaline Phosphatase 184 U/L Aspartate Amino Transf (AST/SGOT) 6281 U/L Alanine Aminotransferase (ALT/SGPT) 2564 U/L Total Bilirubin 0.4 MG/DL Sodium Level 136 MEQ/L Potassium Level 6.5 MEQ/L Chloride Level 105 MEQ/L Carbon Dioxide Level 17.9 MEQ/L Anion Gap 13 MEQ/L Estimat Glomerular Filtration Rate 11 ML/MIN Protein Corrected Calcium 6.9 MG/DL Blood Gas Puncture Site LT RADIAL Blood Gas Patient Temperature 98.6 Blood Gas HCO3 16 mmol/L Blood Gas Base Excess -10.3 mmol/L Blood Gas Oxygen Saturation 94 % Arterial Blood pH 7.25 Arterial Blood Partial Pressure CO2 37 mmHg Arterial Blood Partial Pressure O2 102 mmHg Arterial Blood Oxygen Content 18.4 Vol % Arterial Blood Carboxyhemoglobin 1.0 % Arterial Blood Methemoglobin 1.2 % Blood Gas Hemoglobin 13.9 G/DL Oxygen Delivery Device VENTILATOR Blood Gas Ventilator Setting SEE COMMENTS Blood Gas Inspired Oxygen 40 % Test 12/27/16 13:45 12/27/16 14:53 12/27/16 15:50 12/27/16 20:06 Potassium Level 4.2 MEQ/L Lactic Acid Level 5.5 mmol/L 3.6 mmol/L Total Creatine Kinase 45976 U/L Creatine Kinase MB 427.9 NG/ML Creatine Kinase MB % 0.9 % Troponin I 33.00 NG/ML GREATER THAN 40.00 NG/ML White Blood Count 15.8 TH/MM3 Red Blood Count 4.44 MIL/MM3 Hemoglobin 11.9 GM/DL Hematocrit 36.9 % Mean Corpuscular Volume 83.0 FL Mean Corpuscular Hemoglobin 26.7 PG Mean Corpuscular Hemoglobin Concent 32.2 % Red Cell Distribution Width 15.4 % Platelet Count 153 TH/MM3 Mean Platelet Volume 9.0 FL Prothrombin Time 21.0 SEC Prothromb Time International Ratio 1.8 RATIO Activated Partial Thromboplast Time 34.5 SEC Test 12/27/16 22:37 12/28/16 05:07 Activated Partial Thromboplast Time 55.8 SEC 81.9 SEC White Blood Count 18.5 TH/MM3 Red Blood Count 4.67 MIL/MM3 Hemoglobin 12.8 GM/DL Hematocrit 38.8 % Mean Corpuscular Volume 83.1 FL Mean Corpuscular Hemoglobin 27.5 PG Mean Corpuscular Hemoglobin Concent 33.0 % Red Cell Distribution Width 15.9 % Platelet Count 162 TH/MM3 Mean Platelet Volume 9.5 FL Neutrophils (%) (Auto) 89.2 % Lymphocytes (%) (Auto) 7.1 % Monocytes (%) (Auto) 3.2 % Eosinophils (%) (Auto) 0.1 % Basophils (%) (Auto) 0.4 % Neutrophils # (Auto) 16.5 TH/MM3 Lymphocytes # (Auto) 1.3 TH/MM3 Monocytes # (Auto) 0.6 TH/MM3 Eosinophils # (Auto) 0.0 TH/MM3 Basophils # (Auto) 0.1 TH/MM3 CBC Comment DIFF FINAL Differential Comment Blood Urea Nitrogen 36 MG/DL Creatinine 4.93 MG/DL Random Glucose 126 MG/DL Total Protein 5.1 GM/DL Albumin 2.1 GM/DL Calcium Level 6.3 MG/DL Alkaline Phosphatase 191 U/L Aspartate Amino Transf (AST/SGOT) 9813 U/L Alanine Aminotransferase (ALT/SGPT) 3950 U/L Total Bilirubin 0.9 MG/DL Sodium Level 135 MEQ/L Potassium Level 3.6 MEQ/L Chloride Level 95 MEQ/L Carbon Dioxide Level 23.4 MEQ/L Anion Gap 17 MEQ/L Estimat Glomerular Filtration Rate 10 ML/MIN Protein Corrected Calcium 7.3 MG/DL Troponin I GREATER THAN 40.00 NG/ML Imaging Last Impressions Head CT 12/27/16 0508 Signed Impressions: Service Date/Time: Tuesday, December 27, 2016 05:53 - CONCLUSION: Normal examination. Daron Humphrey MD Chest X-Ray 12/27/168 Signed Impressions: Service Date/Time: Tuesday, December 27, 2016 05:11 - CONCLUSION: 1. Intubation and placement of nasogastric tube. 2. No acute cardiopulmonary disease. Daron Humphrey MD Abdomen/Pelvis CT 12/27/16 0000 Signed Impressions: Service Date/Time: Tuesday, December 27, 2016 17:03 - CONCLUSION: 1. Examination is degraded by breathing motion artifact. 2. Concern for inflammatory process involving the pancreas. No pseudocyst or ductal dilatation observed. 3. Trace amount ascites. 4. Left lower lobe consolidation. 5. Right basilar atelectasis. Ambrosio Nevarez Jr., MD Abdomen Ultrasound 12/27/16 0000 Signed Impressions: Service Date/Time: Tuesday, December 27, 2016 10:52 - CONCLUSION: 1. Echogenic kidneys which can be seen with medical renal disease. 2. Gallbladder wall thickening. Gallstones are not seen. This is nonspecific. Processes such as acalculus cholecystitis or diffuse hepatic disease can lead to thickening of the gallbladder wall. 3. Mild ascites. Jae Hines MD Objective Remarks GENERAL: Patient is 41 yo critically ill intubated and sedated SKIN: Warm and dry. HEAD: Normocephalic. EYES: No scleral icterus. No injection or drainage. NECK: Supple, trachea midline. No JVD or lymphadenopathy. CARDIOVASCULAR: Regular rate and rhythm without murmurs, gallops, or rubs. RESPIRATORY: Breath sounds equal bilaterally. No accessory muscle use. GASTROINTESTINAL: Abdomen soft, non-tender, nondistended. MUSCULOSKELETAL: No cyanosis, or edema. Neuro: Sedated A/P Assessment and Plan 1. VDRF 2. Altered mental status. 3. Polysubstance abuse. 4. Rhabdomyolysis. 5. Acute kidney injury. 6. Elevated liver enzymes. 7. Hypoglycemia. 8. Anemia. 9 Elevated trop/NSTEMI 10. Coagulopathy 11 Lactic acidemia Plan Neuro: On Diprivan infusion for sedation. Monitor neuro status closely. CT brain in the ER negative for acute intracranial process. UDS positive for barbiturates and benzodiazepines. Pulm: Continue vent support and maintain sats > 92%. Bronchodilators CV: Monitor HR and BP keep MAP> 65 mmHg. Monitor CK's/Troponin, cards is following-Dr. Horner For 2D echo to eval LV function Serial lactic acid monitoring...trending down. : Monitor renal function, I&O's and avoid nephrotoxins. Cr: 4.93 from 3.54, on bicarb drip- D5W+3amps bicarb@150ml/hr . Renal is following. Might need HD US abdomen: No hydronephrosis CT abd/pelvis: inflammatory process involving the pancreas. No pseudocyst or ductal dilatation observed. Trace amount ascites Left lower lobe consolidation. Right basilar atelectasis. GI: On Pepcid at 10 mg b.i.d. for GI prophylaxis. Monitor LFT's, GI eval. Check Amylase level. Start Mucomyst per protocol. US liver: Gallbladder wall thickening. Gallstones are not seen. Mild Ascites Start trickle feeds with Nepro. ID: Continue with abx ( Vanco, Zosyn) Monitor for signs of infections(fever and WBC). Follow up on Blood and sputum cxs Heme: Monitor CBC and coags- On Heparin drip Endo: SSI with Accu-Chek q. 2-hour and continue with bicarb drip. GI prophylaxis with Pepcid 10 mg b.i.d. and DVT prophylaxis with SCDs, on Heparin drip Lines: Right femoral central line was placed in the ED 12/27 Patient is critically ill with respiratory failure, altered mental status, renal failure, liver failure. CCT 35 mins Evelyn Bliss MD Dec 28, 2016 07:57
[2016-12-28] MEDS ORDERED: Vancomycin Consult Pharmacy 1 EA OTHER SCH (08:00)
[2016-12-28] MEDS: CHLORHEXIDINE 0.12% (ORAL KIT) 15 ML CUP MT SCH ×2 (08:18→21:38)
--- NOTE | 2016-12-28 08:30 | PD.CARD.PN ---
Subjective Subjective Remarks Hemodynamically stable (on minimal levophed but can be titrated off); no purposeful neuro per nursing Objective Medications Current Medications Medications (Trade) Dose Ordered Sig/Stephanie Route Start Time Stop Time Status Last Admin Propofol 100 ml @ 2.4 mls/hr TITRATE PRN IV 12/27/16 05:15 12/28/16 05:00 Dopamine HCl/ Dextrose 500 ml @ 9 mls/hr TITRATE PRN IV 12/27/16 07:00 12/27/16 06:59 (Brethine Inj) 1 mg UNSCH PRN SQ 12/27/16 07:00 (NS Flush) 2 ml UNSCH PRN IV FLUSH 12/27/16 07:15 (NS Flush) 2 ml BID IV FLUSH 12/27/16 09:00 12/27/16 21:25 (Duoneb Neb) 1 ampule Q6HR NEB NEB 12/27/16 10:00 12/28/16 07:48 (Duoneb Neb) 1 ampule Q4HR NEB PRN INH 12/27/16 07:15 (Peridex 0.12% Liq) 15 ml BID@08,20 MT 12/27/16 08:00 12/28/16 08:18 Miscellaneous Information 1 Q361D XX 12/27/16 07:15 (Chlorhexidine 2% Cloth) 3 pack Taper DAILY@04 TOP 12/28/16 04:00 12/24/17 03:59 12/28/16 04:00 (Chlorhexidine 2% Cloth) 3 pack UNSCH PRN TOP 12/27/16 07:15 (Pepcid) 10 mg BID OG-TUBE 12/27/16 10:00 12/27/16 21:23 (Pill Splitter) 1 ea UNSCH PRN OTHER 12/27/16 09:15 (D50w (Vial) Inj) 50 ml UNSCH PRN IV PUSH 12/27/16 09:30 (Glucagon Inj) 1 mg UNSCH PRN OTHER 12/27/16 09:30 (NovoLIN R SUPPLEMENTAL SCALE) 1 Q2H SQ 12/27/16 10:00 Sodium Bicarbonate 150 meq/Dextrose 1,150 ml @ 150 mls/hr Q7H40M IV 12/27/16 12:00 12/28/16 03:20 (Lactulose Liq) 15 ml BID PO 12/27/16 11:00 12/27/16 21:23 Norepinephrine Bitartrate 250 ml @ 7.5 mls/hr TITRATE PRN IV 12/27/16 11:00 12/27/16 11:00 (Brethine Inj) 1 mg UNSCH PRN SQ 12/27/16 11:00 (Aspirin) 325 mg DAILY PO 12/27/16 15:30 12/27/16 16:36 Heparin Sodium/ Dextrose 250 ml @ 9.6 mls/hr TITRATE PRN IV 12/27/16 15:30 12/27/16 16:43 Pharmacy Profile Note 0 ml @ 0 mls/hr UNSCH OTHER 12/27/16 15:45 Piperacillin Sod/ Tazobactam Sod 50 ml @ 100 mls/hr Q6H IV 12/28/16 04:00 12/28/16 04:00 Pharmacy Profile Note 0 ml @ 0 mls/hr UNSCH OTHER 12/28/16 08:00 UNV Vital Signs / I&O Vital Signs Date Time Temp Pulse Resp B/P (MAP) Pulse Ox O2 Delivery O2 Flow Rate FiO2 12/28/16 07:49 96 40 12/28/16 06:00 97 12/28/16 04:47 98 50 12/28/16 04:00 96 12/28/16 04:00 99.1 96 24 118/59 (78) 98 12/28/16 04:00 50 12/28/16 02:00 98 12/28/16 01:00 98 60 12/28/16 00:00 100 12/28/16 00:00 100.6 104 16 108/75 (86) 95 12/28/16 00:00 104 12/27/16 22:00 106 12/27/16 21:10 94 100 12/27/16 20:11 95 40 12/27/16 20:00 101.1 105 24 126/66 (86) 89 12/27/16 20:00 100 12/27/16 20:00 105 12/27/16 18:00 100 12/27/16 16:00 100 12/27/16 16:00 101.1 101 16 133/72 (92) 98 12/27/16 15:50 97 40 12/27/16 15:00 109 12/27/16 14:00 100 12/27/16 13:06 95 85/49 12/27/16 12:00 100 12/27/16 12:00 100.9 99 16 132/70 (90) 96 12/27/16 11:41 95 40 12/27/16 11:00 104 132/65 12/27/16 10:00 100 12/27/16 09:00 100.5 103 16 116/59 (78) 90 I/O 12/27/16 12/27/16 12/27/16 12/28/16 12/28/16 12/28/16 07:00 15:00 23:00 07:00 15:00 23:00 Intake Total 2061 ml 2159 ml 1550 ml Output Total 250 ml 0 ml Balance 2061 ml 1909 ml 1550 ml Intake IV Total 2061 ml 2159 ml 1300 ml Other 250 ml Output Urine Total 250 ml 0 ml Stool Total 0 ml Gastric Drainage Total 0 ml Physical Exam GENERAL:Intubated, sedated CARDIOVASCULAR: Regular rate and rhythm without murmurs, gallops, or rubs. RESPIRATORY: Clear to auscultation. Breath sounds equal bilaterally. No wheezes , rales, or rhonchi. GASTROINTESTINAL: Abdomen soft, non-tender, nondistended. Normal active bowel sounds MUSCULOSKELETAL: Extremities without clubbing, cyanosis, or edema. NEURO: Intubated, sedated Laboratory Laboratory Tests Test 12/27/16 08:45 12/27/16 09:30 12/27/16 09:47 12/27/16 10:45 Nasal Screen MRSA (PCR) MRSA DETECTED Lactic Acid Level 5.9 mmol/L Ammonia 42 MCMOL/L White Blood Count 24.7 TH/MM3 Red Blood Count 5.11 MIL/MM3 Hemoglobin 13.9 GM/DL Hematocrit 43.2 % Mean Corpuscular Volume 84.5 FL Mean Corpuscular Hemoglobin 27.2 PG Mean Corpuscular Hemoglobin Concent 32.2 % Red Cell Distribution Width 15.6 % Platelet Count 161 TH/MM3 Mean Platelet Volume 8.9 FL Neutrophils (%) (Auto) 81.8 % Lymphocytes (%) (Auto) 12.4 % Monocytes (%) (Auto) 5.7 % Eosinophils (%) (Auto) 0.0 % Basophils (%) (Auto) 0.1 % Neutrophils # (Auto) 20.2 TH/MM3 Lymphocytes # (Auto) 3.1 TH/MM3 Monocytes # (Auto) 1.4 TH/MM3 Eosinophils # (Auto) 0.0 TH/MM3 Basophils # (Auto) 0.0 TH/MM3 CBC Comment AUTO DIFF Differential Total Cells Counted 100 Neutrophils % (Manual) 55 % Band Neutrophils % 25 % Lymphocytes % 16 % Monocytes % 3 % Neutrophils # (Manual) 20.0 TH/MM3 Metamyelocytes 1 % Nucleated Red Blood Cells 1 /100 WBC Differential Comment FINAL DIFF MANUAL Platelet Estimate NORMAL Platelet Morphology Comment NORMAL Blood Urea Nitrogen 23 MG/DL Creatinine 3.54 MG/DL Random Glucose 162 MG/DL Total Protein 6.2 GM/DL Albumin 2.9 GM/DL Calcium Level 6.5 MG/DL Alkaline Phosphatase 184 U/L Aspartate Amino Transf (AST/SGOT) 6281 U/L Alanine Aminotransferase (ALT/SGPT) 2564 U/L Total Bilirubin 0.4 MG/DL Sodium Level 136 MEQ/L Potassium Level 6.5 MEQ/L Chloride Level 105 MEQ/L Carbon Dioxide Level 17.9 MEQ/L Anion Gap 13 MEQ/L Estimat Glomerular Filtration Rate 11 ML/MIN Protein Corrected Calcium 6.9 MG/DL Blood Gas Puncture Site LT RADIAL Blood Gas Patient Temperature 98.6 Blood Gas HCO3 16 mmol/L Blood Gas Base Excess -10.3 mmol/L Blood Gas Oxygen Saturation 94 % Arterial Blood pH 7.25 Arterial Blood Partial Pressure CO2 37 mmHg Arterial Blood Partial Pressure O2 102 mmHg Arterial Blood Oxygen Content 18.4 Vol % Arterial Blood Carboxyhemoglobin 1.0 % Arterial Blood Methemoglobin 1.2 % Blood Gas Hemoglobin 13.9 G/DL Oxygen Delivery Device VENTILATOR Blood Gas Ventilator Setting SEE COMMENTS Blood Gas Inspired Oxygen 40 % Test 12/27/16 13:45 12/27/16 14:53 12/27/16 15:50 12/27/16 20:06 Potassium Level 4.2 MEQ/L Lactic Acid Level 5.5 mmol/L 3.6 mmol/L Total Creatine Kinase 88398 U/L Creatine Kinase MB 427.9 NG/ML Creatine Kinase MB % 0.9 % Troponin I 33.00 NG/ML GREATER THAN 40.00 NG/ML White Blood Count 15.8 TH/MM3 Red Blood Count 4.44 MIL/MM3 Hemoglobin 11.9 GM/DL Hematocrit 36.9 % Mean Corpuscular Volume 83.0 FL Mean Corpuscular Hemoglobin 26.7 PG Mean Corpuscular Hemoglobin Concent 32.2 % Red Cell Distribution Width 15.4 % Platelet Count 153 TH/MM3 Mean Platelet Volume 9.0 FL Prothrombin Time 21.0 SEC Prothromb Time International Ratio 1.8 RATIO Activated Partial Thromboplast Time 34.5 SEC Test 12/27/16 22:37 12/28/16 05:07 Activated Partial Thromboplast Time 55.8 SEC 81.9 SEC White Blood Count 18.5 TH/MM3 Red Blood Count 4.67 MIL/MM3 Hemoglobin 12.8 GM/DL Hematocrit 38.8 % Mean Corpuscular Volume 83.1 FL Mean Corpuscular Hemoglobin 27.5 PG Mean Corpuscular Hemoglobin Concent 33.0 % Red Cell Distribution Width 15.9 % Platelet Count 162 TH/MM3 Mean Platelet Volume 9.5 FL Neutrophils (%) (Auto) 89.2 % Lymphocytes (%) (Auto) 7.1 % Monocytes (%) (Auto) 3.2 % Eosinophils (%) (Auto) 0.1 % Basophils (%) (Auto) 0.4 % Neutrophils # (Auto) 16.5 TH/MM3 Lymphocytes # (Auto) 1.3 TH/MM3 Monocytes # (Auto) 0.6 TH/MM3 Eosinophils # (Auto) 0.0 TH/MM3 Basophils # (Auto) 0.1 TH/MM3 CBC Comment DIFF FINAL Differential Comment Blood Urea Nitrogen 36 MG/DL Creatinine 4.93 MG/DL Random Glucose 126 MG/DL Total Protein 5.1 GM/DL Albumin 2.1 GM/DL Calcium Level 6.3 MG/DL Alkaline Phosphatase 191 U/L Aspartate Amino Transf (AST/SGOT) 9813 U/L Alanine Aminotransferase (ALT/SGPT) 3950 U/L Total Bilirubin 0.9 MG/DL Sodium Level 135 MEQ/L Potassium Level 3.6 MEQ/L Chloride Level 95 MEQ/L Carbon Dioxide Level 23.4 MEQ/L Anion Gap 17 MEQ/L Estimat Glomerular Filtration Rate 10 ML/MIN Protein Corrected Calcium 7.3 MG/DL Total Creatine Kinase 70261 U/L Creatine Kinase MB 397.7 NG/ML Creatine Kinase MB % 0.6 % Troponin I GREATER THAN 40.00 NG/ML Imaging Last Impressions Head CT 12/27/16 0508 Signed Impressions: Service Date/Time: Tuesday, December 27, 2016 05:53 - CONCLUSION: Normal examination. Daron Humphrey MD Chest X-Ray 12/27/16 0508 Signed Impressions: Service Date/Time: Tuesday, December 27, 2016 05:11 - CONCLUSION: 1. Intubation and placement of nasogastric tube. 2. No acute cardiopulmonary disease. Daron Humphrey MD Abdomen/Pelvis CT 12/27/16 0000 Signed Impressions: Service Date/Time: Tuesday, December 27, 2016 17:03 - CONCLUSION: 1. Examination is degraded by breathing motion artifact. 2. Concern for inflammatory process involving the pancreas. No pseudocyst or ductal dilatation observed. 3. Trace amount ascites. 4. Left lower lobe consolidation. 5. Right basilar atelectasis. Ambrosio Nevarez Jr., MD Abdomen Ultrasound 12/27/16 0000 Signed Impressions: Service Date/Time: Tuesday, December 27, 2016 10:52 - CONCLUSION: 1. Echogenic kidneys which can be seen with medical renal disease. 2. Gallbladder wall thickening. Gallstones are not seen. This is nonspecific. Processes such as acalculus cholecystitis or diffuse hepatic disease can lead to thickening of the gallbladder wall. 3. Mild ascites. Jae Hines MD Assessment and Plan Problem List: (1) Polysubstance overdose ICD Codes: T50.901A - Poisoning by unspecified drugs, medicaments and biological substances, accidental (unintentional), initial encounter Status: Acute (2) Multiple organ failure with liver failure ICD Codes: K72.90 - Hepatic failure, unspecified without coma Plan: Prognosis grim (3) Acute kidney injury ICD Codes: N17.9 - Acute kidney failure, unspecified Status: Acute (4) Respiratory arrest ICD Codes: R09.2 - Respiratory arrest Status: Acute (5) NSTEMI (non-ST elevated myocardial infarction) ICD Codes: I21.4 - Non-ST elevation (NSTEMI) myocardial infarction Plan: High troponin secondary to respiratory arrest from drug overdose; echo pending Assessment and Plan Unfortunately prognosis grim, echo pending, do not have any additional recommendations at this time; will sign off but be available as needed, please call with questions. Problem Qualifiers (1) Polysubstance overdose: Qualified Codes: T50.904A - Poisoning by unspecified drugs, medicaments and biological substances, undetermined, initial encounter Haresh Horner MD Dec 28, 2016 08:30
[2016-12-28] MEDS: ASPIRIN 325 MG TAB PO SCH (09:00)
[2016-12-28] MEDS: FAMOTIDINE 20 MG TAB OG-TUBE SCH ×2 (09:00→21:39)
[2016-12-28] MEDS: SODIUM CHLORIDE 0.9% FLUSH 10 ML FLUSH IV FLUSH SCH ×2 (09:00→21:38)
[2016-12-28] MEDS: LACTULOSE SYRUP 20 GM/30 ML CUP PO SCH ×2 (09:00→21:39)
[2016-12-28 09:57] LABS: INTERNATIONAL NORMALIZED RATIO 1.9 RATIO; PROTHROMBIN TIME - PATIENT 22.1 SEC (9.8-11.6)
--- NOTE | 2016-12-28 10:44 | EKG ---
Date Performed: 12/27/2016 Time Performed: 16:09:25 PTAGE: 89 years EKG: SINUS TACHYCARDIA WITH SHORT AR INTERVAL LOW QRS VOLTAGE IN PRECORDIAL LEADS INCOMPLETE RIG HT BUNDLE BRANCH BLOCK ST DEVIATION AND MODERATE T-WAVE ABNORMALITY, CONSIDER ANTERIOR ISCHEMIA ABNOR MAL ECG INTERPRETATION BASED ON A DEFAULT AGE OF 39 YEARS NO PREVIOUS TRACING DOCTOR: Haresh Horner Interpretating Date/Time 12/28/2016 10:39:25
--- NOTE | 2016-12-28 10:44 | EKG ---
Date Performed: 12/27/2016 Time Performed: 16:09:25 PTAGE: 89 years EKG: SINUS TACHYCARDIA WITH SHORT MT INTERVAL LOW QRS VOLTAGE IN PRECORDIAL LEADS INCOMPLETE RIG HT BUNDLE BRANCH BLOCK ST DEVIATION AND MODERATE T-WAVE ABNORMALITY, CONSIDER ANTERIOR ISCHEMIA ABNOR MAL ECG INTERPRETATION BASED ON A DEFAULT AGE OF 39 YEARS NO PREVIOUS TRACING DOCTOR: Haresh Horner Interpretating Date/Time 12/28/2016 10:39:25
--- NOTE | 2016-12-28 10:44 | EKG ---
Date Performed: 12/27/2016 Time Performed: 16:09:25 PTAGE: 89 years EKG: SINUS TACHYCARDIA WITH SHORT WY INTERVAL LOW QRS VOLTAGE IN PRECORDIAL LEADS INCOMPLETE RIG HT BUNDLE BRANCH BLOCK ST DEVIATION AND MODERATE T-WAVE ABNORMALITY, CONSIDER ANTERIOR ISCHEMIA ABNOR MAL ECG INTERPRETATION BASED ON A DEFAULT AGE OF 39 YEARS NO PREVIOUS TRACING DOCTOR: Haresh Horner Interpretating Date/Time 12/28/2016 10:39:25
--- NOTE | 2016-12-28 11:27 | PD.CONS ---
HPI History of Present Illness This is a 41 year old female with a history of IV drug abuse, who was brought to the emergency room for evaluation after she was found face down in her bed with agonal breathing. She was intubated in the field and transported to the hospital, where she was found to be hypotensive and tachycardic and was given Narcan and then required 1 minute of CPR with ROSC. She was admitted to the intensive care unit for multisystem failure with respiratory failure, altered mental status, rhabdomyolysis, acute kidney injury, hypoglycemia, and elevated LFTs with coagulopathy. She is currently sedated on the ventilator and unable to provide any history. Her LFTs on admission were 0.2, 1646,742, 135 and have increased to T. Bili 0.9, AST 9813, ALT 3950, ALk Phosph 191. CPK is has increased to 10,574 to 61,693. PT/INR has increased from 20.6, 1.8 to 22.1, 1.9. Her troponin is greater than 40. Her toxicology screen was positive for barbituates and benzodiazepines. ETOH was < 3. Acetaminophen was 5.3 on arrival. GI was consulted for elevated LFTs, possible liver failure. It is unknown if she has any prior history of liver disease. The exact events leading up to her being found down are also unclear. According to the EMR, there is a history of IVDA. CT Scan abdomen and pelvis (12/27/16)----> Examination is degraded by breathing motion artifact. Concern for inflammatory process involving the pancreas. No pseudocyst or ductal dilatation observed. Trace amount ascites. Left lower lobe consolidation. Right basilar atelectasis. Abdominal US (12/27/16)---> Echogenic kidneys which can be seen with medical renal disease. Gallbladder wall thickening. Gallstones are not seen. Processes wuch as acalculus cholecystitis or diffuse hepatic disease can lead to thickening of the gallbladder wall. Mild ascites. She was evaluated by cardiology for her NSTEMI and feel this is likely secondary to respiratory arrest from drug overdose. [facility] Past Medical History Unable to obtain Per ER note, hx of IVDA Past Surgical History Unable to obtain Coded Allergies: No Known Allergies (Unverified , 12/27/16) Medications Allergies Coded Allergies Type Severity Reaction Last Updated Verified No Known Allergies 12/27/16 No Family History Unable to obtain Social History Unable to obtain Review of Systems ROS Unable to obtain GI Exam Vitals I&O Vital Signs Date Time Temp Pulse Resp B/P (MAP) Pulse Ox O2 Delivery O2 Flow Rate FiO2 12/28/16 09:30 105 131/75 12/28/16 07:49 96 40 12/28/16 06:00 97 12/28/16 04:47 98 50 12/28/16 04:00 96 12/28/16 04:00 99.1 96 24 118/59 (78) 98 12/28/16 04:00 50 12/28/16 02:00 98 12/28/16 01:00 98 60 12/28/16 00:00 100 12/28/16 00:00 100.6 104 16 108/75 (86) 95 12/28/16 00:00 104 12/27/16 22:00 106 12/27/16 21:10 94 100 12/27/16 20:11 95 40 12/27/16 20:00 101.1 105 24 126/66 (86) 89 12/27/16 20:00 100 12/27/16 20:00 105 12/27/16 18:00 100 12/27/16 16:00 100 12/27/16 16:00 101.1 101 16 133/72 (92) 98 12/27/16 15:50 97 40 12/27/16 15:00 109 12/27/16 14:00 100 12/27/16 13:06 95 85/49 12/27/16 12:00 100 12/27/16 12:00 100.9 99 16 132/70 (90) 96 12/27/16 11:41 95 40 12/27/16 11:00 104 132/65 I/O 12/27/16 12/27/16 12/27/16 12/28/16 12/28/16 12/28/16 07:00 15:00 23:00 07:00 15:00 23:00 Intake Total 2061 ml 2159 ml 1550 ml Output Total 250 ml 0 ml Balance 2061 ml 1909 ml 1550 ml Intake IV Total 2061 ml 2159 ml 1300 ml Other 250 ml Output Urine Total 250 ml 0 ml Stool Total 0 ml Gastric Drainage Total 0 ml Imaging Last Impressions Head CT 12/27/16 6101 Signed Impressions: Service Date/Time: Tuesday, December 27, 2016 05:53 - CONCLUSION: Normal examination. Daron Humphrey MD Chest X-Ray 12/27/16 0508 Signed Impressions: Service Date/Time: Tuesday, December 27, 2016 05:11 - CONCLUSION: 1. Intubation and placement of nasogastric tube. 2. No acute cardiopulmonary disease. Daron Humphrey MD Abdomen/Pelvis CT 12/27/16 0000 Signed Impressions: Service Date/Time: Tuesday, December 27, 2016 17:03 - CONCLUSION: 1. Examination is degraded by breathing motion artifact. 2. Concern for inflammatory process involving the pancreas. No pseudocyst or ductal dilatation observed. 3. Trace amount ascites. 4. Left lower lobe consolidation. 5. Right basilar atelectasis. Ambrosio Nevarez Jr., MD Abdomen Ultrasound 12/27/16 0000 Signed Impressions: Service Date/Time: Tuesday, December 27, 2016 10:52 - CONCLUSION: 1. Echogenic kidneys which can be seen with medical renal disease. 2. Gallbladder wall thickening. Gallstones are not seen. This is nonspecific. Processes such as acalculus cholecystitis or diffuse hepatic disease can lead to thickening of the gallbladder wall. 3. Mild ascites. Jae Hines MD Laboratory Test 12/27/16 13:45 12/27/16 14:53 12/27/16 15:50 12/27/16 20:06 Potassium Level 4.2 MEQ/L Lactic Acid Level 5.5 mmol/L 3.6 mmol/L Total Creatine Kinase 41094 U/L Creatine Kinase MB 427.9 NG/ML Creatine Kinase MB % 0.9 % Troponin I 33.00 NG/ML GREATER THAN 40.00 NG/ML White Blood Count 15.8 TH/MM3 Red Blood Count 4.44 MIL/MM3 Hemoglobin 11.9 GM/DL Hematocrit 36.9 % Mean Corpuscular Volume 83.0 FL Mean Corpuscular Hemoglobin 26.7 PG Mean Corpuscular Hemoglobin Concent 32.2 % Red Cell Distribution Width 15.4 % Platelet Count 153 TH/MM3 Mean Platelet Volume 9.0 FL Prothrombin Time 21.0 SEC Prothromb Time International Ratio 1.8 RATIO Activated Partial Thromboplast Time 34.5 SEC Test 12/27/16 22:37 12/28/16 05:07 12/28/16 09:00 Activated Partial Thromboplast Time 55.8 SEC 81.9 SEC White Blood Count 18.5 TH/MM3 Red Blood Count 4.67 MIL/MM3 Hemoglobin 12.8 GM/DL Hematocrit 38.8 % Mean Corpuscular Volume 83.1 FL Mean Corpuscular Hemoglobin 27.5 PG Mean Corpuscular Hemoglobin Concent 33.0 % Red Cell Distribution Width 15.9 % Platelet Count 162 TH/MM3 Mean Platelet Volume 9.5 FL Neutrophils (%) (Auto) 89.2 % Lymphocytes (%) (Auto) 7.1 % Monocytes (%) (Auto) 3.2 % Eosinophils (%) (Auto) 0.1 % Basophils (%) (Auto) 0.4 % Neutrophils # (Auto) 16.5 TH/MM3 Lymphocytes # (Auto) 1.3 TH/MM3 Monocytes # (Auto) 0.6 TH/MM3 Eosinophils # (Auto) 0.0 TH/MM3 Basophils # (Auto) 0.1 TH/MM3 CBC Comment DIFF FINAL Differential Comment Blood Urea Nitrogen 36 MG/DL Creatinine 4.93 MG/DL Random Glucose 126 MG/DL Total Protein 5.1 GM/DL Albumin 2.1 GM/DL Calcium Level 6.3 MG/DL Alkaline Phosphatase 191 U/L Aspartate Amino Transf (AST/SGOT) 9813 U/L Alanine Aminotransferase (ALT/SGPT) 3950 U/L Total Bilirubin 0.9 MG/DL Sodium Level 135 MEQ/L Potassium Level 3.6 MEQ/L Chloride Level 95 MEQ/L Carbon Dioxide Level 23.4 MEQ/L Anion Gap 17 MEQ/L Estimat Glomerular Filtration Rate 10 ML/MIN Protein Corrected Calcium 7.3 MG/DL Total Creatine Kinase 89486 U/L Creatine Kinase MB 397.7 NG/ML Creatine Kinase MB % 0.6 % Troponin I GREATER THAN 40.00 NG/ML Amylase Level 206 U/L Prothrombin Time 22.1 SEC Prothromb Time International Ratio 1.9 RATIO Date/Time Source Procedure Growth Status 12/27/16 14:56 Blood Peripheral Aerobic Blood Culture Pending Received 12/27/16 14:56 Blood Peripheral Anaerobic Blood Culture Pending Received 12/27/16 16:35 Sputum Endotracheal Gram Stain - Final Resulted 12/27/16 16:35 Sputum Endotracheal Sputum Culture Pending Resulted Physical Examination HEENT: Normocephalic; atraumatic; no jaundice. CHEST: Resp. even/unlabored on vent. Diminished bases. CARDIAC: Regular, tachycardia ABDOMEN: Soft, nondistended, nontender; no hepatosplenomegaly; bowel sounds are present in all four quadrants. EXTREMITIES: Generalized edema. SKIN: Multiple scabs to both hands. PHYSICIAN NON INVASIVE CARDIOLOGIST: Sedated on vent. Assessment and Plan Plan ASSESSMENT: - Acute hepatitis, unclear etiology, worsening elevated transaminases with worsening coagulopathy, concerning for liver failure. Her LFTs on admission were 0.2, 1646,742, 135 and have increased to T. Bili 0.9, AST 9813, ALT 3950, ALk Phosph 191. PT/INR has increased from 20.6, 1.8 to 22.1, 1.9. CPK is has increased to 10, 574 to 61,693. Also with NSTEMI, felt to be related to respiratory failure from drug od. CT Scan abdomen and pelvis ()----> Examination is degraded by breathing motion artifact. Concern for inflammatory process involving the pancreas. No pseudocyst or ductal dilatation observed. Trace amount ascites. Left lower lobe consolidation. Right basilar atelectasis. Abdominal US (12/27/16)---> Echogenic kidneys which can be seen with medical renal disease. Gallbladder wall thickening. Gallstones are not seen. Processes wuch as acalculus cholecystitis or diffuse hepatic disease can lead to thickening of the gallbladder wall. Mild ascites. Hepatitis profile pending. Unknown if she had any tylenol containing products or ETOH prior to this episode and the nurse reports that she was down for quite some time before she was brought in. ? liver failure vs. acute hepatitis (viral vs. drug induced vs. rhabdo) also with some underlying shocked liver. 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 Will get liver workup to rule out underlying liver disease. Start acetylcysteine IV per protocol prophylactically and closely monitor LFTs, Coag's, and Ammonia. - Hepatic encephalopathy. Ammonia 42. - Drug overdose. Reported hx of IVDA. Tox screen (+) Barbituates and benzodiazepines. - Respiratory failure. Vent per [facility]. - NSTEMI. S/P CPR x 1 minute in ER. Troponin > 40.0. S/P Cardiology evaluation , feels likely secondary to respiratory failure from Drug overdose. On heparin gtt. - Rhabdomyolysis. CPK 61,693. - Leukocytosis. WBC 18.5. Sputum, BCx pending. Zosyn. - ARF. Creat 4.93. - DO, unclear if this was intentional vs. accidental. PLAN: - NPO for now - Acetylcysteine IV prophylactically 14,700mg over one hour 4,900mg over 4 hours 9,800mg over 16 hours - Lactulose 30mL per OGT BID - LFT, Ammonia, PT/INR q12h - Await hepatitis profile - Cont. Zosyn. - Nephrology following - CCM following - S/P Cardiology evaluation - Supportive care - Further recommendations to follow based on results of above - Pt seen and examined by Dr. Ricardo and myself and this note is written on his behalf Glenys Latham Dec 28, 2016 11:27
[2016-12-28 11:30] LABS: HEPATITIS A AB IGM NEGATIVE (NEGATIVE); HEPATITIS B SURFACE ANTIGEN NEGATIVE (NEGATIVE); HEPATITIS C AB IgG NEGATIVE (NEGATIVE)
[2016-12-28] MEDS ORDERED: SODIUM CHLORIDE 0.9% FLUSH 10 ML FLUSH IVF PRN (11:30)
[2016-12-28] MEDS ORDERED: DEXTROSE 5% IV ONE ×6 (13:00→18:00)
[2016-12-28] MEDS ORDERED: WATER IV ONE ×2 (13:00)
[2016-12-28] MEDS ORDERED: ACETYLCYSTEINE IV ONE ×6 (13:00→18:00)
[2016-12-28] MEDS ORDERED: WATE IV ONE ×4 (14:00→18:00)
[2016-12-28] MEDS ORDERED: SODIUM CHLORID 0.9% 500 ML INJ 500 ML IV ONE (15:15)
[2016-12-28] MEDS ORDERED: SODIUM CHLOR 0.9% 1000 ML INJ 1,000 ML IV ONE (16:15)
--- NOTE | 2016-12-28 16:15 | ECHRPT ---
Indication: elevated trop CONCLUSIONS The left ventricular systolic function is normal with an estimated ejection fraction in the range of 55-60%. Mild concentric left ventricular hypertrophy. Doppler parameters are consistent with impaired left ventricular relaxtion (grade 1 diastolic dysfun ction). Trace mitral valve regurgitation. There is trace tricuspid valve regurgitation. BP: 108 / 75 HR: 104 Rhythm: MEASUREMENTS (Male / Female) Normal Values Technical Quality:Fair 2D ECHO LV Diastolic Diameter PLAX 4.2 cm 4.2 - 5.9 / 3.9 - 5.3 cm LV Systolic Diameter PLAX 3.1 cm IVS Diastolic Thickness 1.3 cm 0.6 - 1.0 / 0.6 - 0.9 cm LVPW Diastolic Thickness 1.0 cm 0.6 - 1.0 / 0.6 - 0.9 cm LV Relative Wall Thickness 0.6 RV Internal Dim ED PLAX 2.6 cm M-MODE Aortic Root Diameter MM 2.9 cm LA Systolic Diameter MM 2.1 cm LA Ao Ratio MM 0.7 AV Cusp Separation MM 1.6 cm DOPPLER Mitral E Point Velocity 42.9 cm/s Mitral A Point Velocity 68.6 cm/s Mitral E to A Ratio 0.6 LV E' Lateral Velocity 4.0 cm/s Mitral E to LV E' Lateral Ratio 10.7 LV E' Septal Velocity 5.2 cm/s Mitral E to LV E' Septal Ratio 8.3 TR Peak Velocity 301.7 cm/s TR Peak Gradient 36.4 mmHg Right Atrial Pressure 10.0 mmHg Pulmonary Artery Systolic Pressu 46.4 mmHg Right Ventricular Systolic Press 46.4 mmHg FINDINGS LEFT VENTRICLE The left ventricular systolic function is normal with an estimated ejection fraction in the range of 55-60%. Normal left ventricular size. Mild concentric left ventricular hypertrophy. No regional wall motion abnormalities are present. Doppler parameters are consistent with impaired left ventricular relaxtion (grade 1 diastolic dysfun ction). RIGHT VENTRICLE Normal right ventricular size and systolic function. LEFT ATRIUM The left atrial size is normal. RIGHT ATRIUM The right atrial size is normal. ATRIAL SEPTUM Normal atrial septal thickness. AORTA The aortic root and proximal ascending aorta are normal in size on limited imaging. MITRAL VALVE Structurally normal mitral valve. Trace mitral valve regurgitation. No mitral valve stenosis. AORTIC VALVE Trileaflet aortic valve. No aortic valve stenosis or regurgitation. TRICUSPID VALVE Structurally normal tricuspid valve. There is trace tricuspid valve regurgitation. The estimated pulmonary arterial pressure is 46.4 mmHg. No tricuspid valve stenosis. PULMONARY VALVE No pulmonary valve regurgitation or stenosis. VESSELS The inferior vena cava is normal in size. PERICARDIUM No pericardial effusion. Valdez Cuello DO (Electronically Signed) Final Date:28 December 2016 16:15
--- NOTE | 2016-12-28 16:29 | HHI.NPPN ---
Subjective History of Present Illness 36-year-old female with past medical history of possible seizure disorder, history of polysubstance abuse who was brought to the hospital by EMS when she was found unresponsive. I was called to see the patient because of elevated BUN and creatinine. Her creatinine on admission was 3.3 and now it is 3.5 and also she has high potassium of 6.5. The patient is intubated and she is not able to give any history. Most of the history was taken from the patient's chart and some from the mother who was at the bedside but she also does not know much about her medical history. Additional Remarks Patient remain intubated , sedated and on pressors. Objective Data Data 12/28/16 12/29/16 19:00 07:00 Intake Total 1601 ml Balance 1601 ml Intake IV Total 1601 ml Vital Signs Date Time Temp Pulse Resp B/P (MAP) Pulse Ox O2 Delivery O2 Flow Rate FiO2 12/28/16 15:48 100 40 12/28/16 14:00 113 12/28/16 13:30 96 40 12/28/16 12:00 99.1 109 16 112/64 (80) 97 12/28/16 12:00 40 12/28/16 12:00 109 12/28/16 11:50 99 40 12/28/16 10:00 107 12/28/16 09:30 105 131/75 12/28/16 08:00 40 12/28/16 08:00 98 12/28/16 08:00 98.8 98 16 117/67 (84) 96 12/28/16 07:49 96 40 12/28/16 06:00 97 12/28/16 04:47 98 50 12/28/16 04:00 96 12/28/16 04:00 99.1 96 24 118/59 (78) 98 12/28/16 04:00 50 12/28/16 02:00 98 12/28/16 01:00 98 60 12/28/16 00:00 100 12/28/16 00:00 100.6 104 16 108/75 (86) 95 12/28/16 00:00 104 12/27/16 22:00 106 12/27/16 21:10 94 100 12/27/16 20:11 95 40 12/27/16 20:00 101.1 105 24 126/66 (86) 89 12/27/16 20:00 100 12/27/16 20:00 105 12/27/16 18:00 100 -: 12/28/16 0507 12/28/16 0507 Microbiology 12/27/16 Gram Stain - Final, Resulted 12/27/16 Sputum Culture - Preliminary, Resulted Gram Negative Rishi Beta Strep Not Group A Physical Exam General Appearance Remarks Intubated and sedated. Eyes Eye Exam: Pupils Equal Throat Throat Exam: Oral Mucosa [place] & Moist Pulmonary Resp Exam: Breath Sounds Equal, Rhonchi, Decreased Bases, Diminished Breath Sounds, Poor Inspiratory Effort Cardiology CV Exam: Regular, Normal Sinus Rhythm Gastrointestinal/Abdomen GI Exam: Soft, Non-Tender, Bowel Sounds Present Extremeties Extremities Exam: Trace Edema Neurologic Neuro Exam: Sedated Assessment/Plan Assessment Summary: DAVY/Acute Renal Failure, Hypotension Electrolyte Assessment: Hyperkalemia, Metabolic Acidosis Problem List: (1) Rhabdomyolysis ICD Codes: M62.82 - Rhabdomyolysis (2) Acute metabolic encephalopathy ICD Codes: G93.41 - Metabolic encephalopathy Status: Acute (3) Respiratory arrest ICD Codes: R09.2 - Respiratory arrest Status: Acute (4) Polysubstance overdose ICD Codes: T50.901A - Poisoning by unspecified drugs, medicaments and biological substances, accidental (unintentional), initial encounter Status: Acute (5) NSTEMI (non-ST elevated myocardial infarction) ICD Codes: I21.4 - Non-ST elevation (NSTEMI) myocardial infarction (6) Multiple organ failure with liver failure ICD Codes: K72.90 - Hepatic failure, unspecified without coma (7) Acute kidney injury ICD Codes: N17.9 - Acute kidney failure, unspecified Status: Acute Plan Patient remain on the vent. and on pressors. BP is low. Has multiorgan failure. Lactic acid increasing due to shock. CPK also increasing. K was normal and Hco3 was 23 in AM. On 40% Fio2. D/W Dr. Bliss, will repeat BMP and decide if need HD. Heparin to hold now. Start also Bumex to see if start passing more urine. Prognosis is guarded. Problem Qualifiers (1) Polysubstance overdose: Qualified Codes: T50.904A - Poisoning by unspecified drugs, medicaments and biological substances, undetermined, initial encounter Brandy Ortiz MD Dec 28, 2016 16:29
[2016-12-28] MEDS ORDERED: SODIUM BICARBONATE 8.4% INJ 50 MEQ/50 ML SYR IV PUSH ONE (16:30)
[2016-12-28 17:33] LABS: BICARBONATE 21.8 MEQ/L (21.0-32.0); CALCIUM 5.5 MG/DL (8.5-10.1); CREATININE 5.27 MG/DL (0.50-1.00)
[2016-12-28] MEDS: BUMETANIDE INJ 100 ML IV SCH (17:39)
[2016-12-28 17:44] LABS: % SATURATION IRON PROFILE 46.4 % (20-50); ALBUMIN 1.4 GM/DL (3.4-5.0); ALKALINE PHOSPHATASE 171 U/L (45-117); ALT (GPT) 2859 U/L (10-53); AST (GOT) 6040 U/L (15-37); DIRECT BILIRUBIN ADULT 0.3 MG/DL (0.0-0.2); FERRITIN 6358 NG/ML (8-252); INDIRECT BILIRUBIN 0.5 MG/DL (0.0-0.8); IRON (FE) 61 MCG/DL (50-170); TOTAL BILIRUBIN ADULT 0.8 MG/DL (0.2-1.0); TOTAL IRON BINDING CAPACITY 132 MCG/DL (250-450); TOTAL PROTEIN 3.5 GM/DL (6.4-8.2)
[2016-12-28 17:50] LABS: TOTAL PROTEIN 3.6 GM/DL (6.4-8.2)
[2016-12-28 17:54] LABS: PROTHROMBIN TIME - PATIENT 22.4 SEC (9.8-11.6)
[2016-12-28 17:56] LABS: CALCIUM-PROTEIN CORRECTED 7.1 MG/DL (8.5-10.1)
[2016-12-28] MEDS: NOREPINEPHRINE-DEXTROSE DRIP 250 ML IV PRN (18:46)
--- NOTE | 2016-12-28 20:47 | PD.CONS ---
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 [place] statutes,health care proxy decision making falls to a parent. * FULL CODE * Spoke with mother to introduce palliative care, obtain additional history, provide update, overview of current medical condition and pending dialysis decision. Wants to proceed with dialysis and FULL CODE for now. Family meeting with parents and sister arranged per mother request on 12/30/16 at 1pm for further clarification of goals. * SYMPTOMS: Pain: chronic pain and IV drug abuse. On Diprivan. Dyspnea: on mech vent. On Dipirvan. No signs of pain during my visit, No new medication recommendations at this time. * Palliative care number provided. * Palliative care will continue to follow to assist with clarification of treatment goals. . (Aniya Chung) Thank you for the opportunity to participate in the care of Ms. Winn. (Aniya Chung) Collaborating MD Comments Chart reviewed. Case discussed with palliative care CONSULTING ENGINEER. Above note reviewed and I concur. . (Jhonny Valentino MD) Aniya Chung Dec 28, 2016 20:46 Jhonny Valentino MD Dec 31, 2016 17:13
[2016-12-28] MEDS: MUPIROCIN 2% OINT 1 APPLIC/GM SYR NASAL SCH (21:38)
[2016-12-29] VITALS (19 sets, daily range): BP systolic 85–103; BP diastolic 51–60; PULSE 21–122; RESP 16–24; TEMP 98.9–100.6; O2SAT 63–94
[2016-12-29] MEDS: PROPOFOL 1000 MG/100 ML INJ 100 ML IV PRN ×2 (01:20→07:33)
[2016-12-29] MEDS: NOREPINEPHRINE-DEXTROSE DRIP 250 ML IV PRN ×6 (02:11→21:43)
[2016-12-29] MEDS: RESP: ALBUTEROL 2.5 MG/IPRATROPIUM 0.5 MG NEB (SCH) NEB ×4 (03:58→21:32)
[2016-12-29] MEDS: CHLORHEXIDINE GLUCONATE 2 % 1 PACK (2 CLOTHS) TOP SCH (04:00)
[2016-12-29 04:35] LABS: BASOPHIL # 0.1 TH/MM3 (0-0.2); BASOPHIL % 0.4 % (0.0-2.0); EOSINOPHIL % 0.1 % (0.0-4.0); HEMATOCRIT 34.2 % (35.0-46.0); HEMOGLOBIN 11.4 GM/DL (11.6-15.3); LYMPH % 7.3 % (9.0-44.0); LYMPHOCYTE # 1.6 TH/MM3 (1.0-4.8); MEAN CELL VOLUME 83.4 FL (80.0-100.0); MEAN CORPUSCULAR HEMOGLOBIN 27.8 PG (27.0-34.0); MEAN CORPUSCULAR HGB CONC 33.3 % (32.0-36.0); MEAN PLATELET VOLUME 9.6 FL (7.0-11.0); MONO % 2.6 % (0.0-8.0); MONOCYTE # 0.6 TH/MM3 (0-0.9); NEUT % 89.6 % (16.0-70.0); PLATELET COUNT 156 TH/MM3 (150-450); RED CELL DISTRIBUTION WIDTH 15.9 % (11.6-17.2); WHITE BLOOD COUNT 22.3 TH/MM3 (4.0-11.0)
[2016-12-29 04:41] LABS: INTERNATIONAL NORMALIZED RATIO 1.8 RATIO; PROTHROMBIN TIME - PATIENT 20.8 SEC (9.8-11.6)
[2016-12-29] MEDS: PIPERACIL-TAZO 2.25 GM PREMIX 50 ML IV SCH ×4 (05:26→22:04)
[2016-12-29 05:38] LABS: BANDS 36 % (0-6); LYMPHOCYTES 5 % (9-44); METAMYELOCYTES 1 % (0-1); MONOCYTES 3 % (0-8); NEUTROPHIL # MANUAL DIFF 20.5 TH/MM3 (1.8-7.7); POLYS (SEG NEUTROPHILS) 55 % (16-70)
[2016-12-29] MEDS: SODIUM BICARBONATE 8.4% INJ 150 MEQ in DEXTROSE 5% IN WATE 1000ML INJ 1,000 ML IV SCH ×6 (05:44→15:43)
[2016-12-29 06:06] LABS: ALBUMIN 1.6 GM/DL (3.4-5.0); BICARBONATE 19.6 MEQ/L (21.0-32.0); CREATININE 5.95 MG/DL (0.50-1.00); DIRECT BILIRUBIN ADULT 0.6 MG/DL (0.0-0.2); TOTAL BILIRUBIN ADULT 1.1 MG/DL (0.2-1.0); TOTAL PROTEIN 4.3 GM/DL (6.4-8.2)
[2016-12-29 07:23] LABS: CALCIUM 5.6 MG/DL (8.5-10.1)
[2016-12-29 07:24] LABS: CALCIUM-PROTEIN CORRECTED 6.8 MG/DL (8.5-10.1)
[2016-12-29] MEDS: LACTULOSE SYRUP 20 GM/30 ML CUP PO SCH ×2 (08:18→20:17)
[2016-12-29] MEDS: FAMOTIDINE 20 MG TAB OG-TUBE SCH ×2 (08:19→20:16)
[2016-12-29] MEDS: ASPIRIN 325 MG TAB PO SCH (08:19)
[2016-12-29] MEDS: MUPIROCIN 2% OINT 1 APPLIC/GM SYR NASAL SCH ×2 (08:19→20:16)
[2016-12-29] MEDS: CHLORHEXIDINE 0.12% (ORAL KIT) 15 ML CUP MT SCH ×2 (08:19→20:00)
[2016-12-29] MEDS: SODIUM CHLORIDE 0.9% FLUSH 10 ML FLUSH IV FLUSH SCH ×2 (08:19→20:16)
--- NOTE | 2016-12-29 08:30 | HHI.CCPN ---
Subjective Remarks/Hospital Course Patient is a young adult female with unknown past medical history, who presented to [facility] ED by EMS after family found her face down in bed for several hours. When paramedics arrived they found the patient unresponsive with agonal respirations and faint palpable pulse. She was immediately intubated and transported to the ED. She has a history of IV and polysubstance abuse. On arrival to the ER the patient was hypotensive and tachycardic. She was given total 3 liters of crystalloids. Her urine drug screen was positive for benzodiazepines and barbiturates. Her laboratory data is significant for hypoglycemia with a blood sugar level of 28, acute renal failure with creatinine 3.39. In addition the patient had significant elevation in liver enzymes with AST 1646, ALT 742 with a total bilirubin 0.2. Also she was found to be in rhabdo with total CKs of 10,574. Her blood sugar fingerstick in the ED was 33 and she was subsequently given 1 amp of D50. In the ER the patient did not have a pulse and she received 1 minute of CPR in addition to epi x1 with successful return of spontaneous circulation. When seen she was able to open up her eyes to voice. Due to hypotension she was started on dopamine which is currently at 10 mics. The patient also received 2 mg IV of Narcan. 12/28: Patient remains sedated with Diprivan and intubated. Heparin drip started yesterday for Trop>30. Spiked fever with T: 101.1 last night. LFT's and renal function are worsening Cr:4.93 from 3.54. On bicarb drip. 12/29 Patient is sedated and intubated. Started on Bumex 1mg/hr yesterday per renal. On Bicarb drip. For HD today. On Levophed and Vasopressin Renal function continue to worse with Cr: 5.95 today from 5.27 with no significant urine output. Objective Vital Signs Date Time Temp Pulse Resp B/P (MAP) Pulse Ox O2 Delivery O2 Flow Rate FiO2 12/29/16 08:00 100.5 119 21 89/51 (64) 93 12/29/16 08:00 100 12/27/16 07:10 Ventilator 12/27/16 04:20 15.00 Intake and Output 12/29/16 12/29/16 12/30/16 08:00 16:00 00:00 Intake Total 2499 ml Output Total 10 ml Balance 2489 ml Result Diagram: 12/29/16 0410 12/29/16 0410 Other Results Laboratory Tests Test 12/28/16 09:00 12/28/16 11:40 12/28/16 13:48 12/28/16 15:00 Prothrombin Time 22.1 SEC 22.4 SEC Prothromb Time International Ratio 1.9 RATIO 2.0 RATIO Activated Partial Thromboplast Time 176.7 SEC 49.0 SEC Lactic Acid Level 9.1 mmol/L Troponin I GREATER THAN 40.00 NG/ML Lipase 179 U/L Tumor Marker Alpha Fetoprotein 0.9 NG/ML Test 12/28/16 16:37 12/28/16 17:55 12/28/16 21:22 12/29/16 04:10 Blood Urea Nitrogen 41 MG/DL 45 MG/DL Creatinine 5.27 MG/DL 5.95 MG/DL Random Glucose 125 MG/DL 116 MG/DL Total Protein 3.6 GM/DL 4.3 GM/DL Calcium Level 5.5 MG/DL 5.6 MG/DL Sodium Level 139 MEQ/L 133 MEQ/L Potassium Level 3.3 MEQ/L 3.5 MEQ/L Chloride Level 94 MEQ/L 86 MEQ/L Carbon Dioxide Level 21.8 MEQ/L 19.6 MEQ/L Anion Gap 23 MEQ/L 27 MEQ/L Estimat Glomerular Filtration Rate 9 ML/MIN 8 ML/MIN Protein Corrected Calcium 7.1 MG/DL 6.8 MG/DL Iron Level 61 MCG/DL Total Iron Binding Capacity 132 MCG/DL Percent Iron Saturation 46.4 % Ferritin 6358 NG/ML Total Bilirubin 0.8 MG/DL 1.1 MG/DL Direct Bilirubin 0.3 MG/DL 0.6 MG/DL Indirect Bilirubin 0.5 MG/DL Aspartate Amino Transf (AST/SGOT) 6040 U/L 7148 U/L Alanine Aminotransferase (ALT/SGPT) 2859 U/L 3341 U/L Alkaline Phosphatase 171 U/L 325 U/L Albumin 1.4 GM/DL 1.6 GM/DL Ammonia 59 MCMOL/L 66 MCMOL/L Lactic Acid Level 10.5 mmol/L White Blood Count 22.3 TH/MM3 Red Blood Count 4.10 MIL/MM3 Hemoglobin 11.4 GM/DL Hematocrit 34.2 % Mean Corpuscular Volume 83.4 FL Mean Corpuscular Hemoglobin 27.8 PG Mean Corpuscular Hemoglobin Concent 33.3 % Red Cell Distribution Width 15.9 % Platelet Count 156 TH/MM3 Mean Platelet Volume 9.6 FL Neutrophils (%) (Auto) 89.6 % Lymphocytes (%) (Auto) 7.3 % Monocytes (%) (Auto) 2.6 % Eosinophils (%) (Auto) 0.1 % Basophils (%) (Auto) 0.4 % Neutrophils # (Auto) 20.0 TH/MM3 Lymphocytes # (Auto) 1.6 TH/MM3 Monocytes # (Auto) 0.6 TH/MM3 Eosinophils # (Auto) 0.0 TH/MM3 Basophils # (Auto) 0.1 TH/MM3 CBC Comment AUTO DIFF Differential Total Cells Counted 100 Neutrophils % (Manual) 55 % Band Neutrophils % 36 % Lymphocytes % 5 % Monocytes % 3 % Neutrophils # (Manual) 20.5 TH/MM3 Metamyelocytes 1 % Differential Comment FINAL DIFF MANUAL Platelet Estimate NORMAL Platelet Morphology Comment NORMAL Prothrombin Time 20.8 SEC Prothromb Time International Ratio 1.8 RATIO Total Creatine Kinase 23651 U/L Creatine Kinase MB 172.8 NG/ML Creatine Kinase MB % 0.3 % Random Vancomycin Level 12.0 COMMENT Test 12/29/16 05:15 Blood Gas Puncture Site LT BRACHIAL Blood Gas Patient Temperature 98.6 Blood Gas HCO3 16 mmol/L Blood Gas Base Excess -9.7 mmol/L Blood Gas Oxygen Saturation 91 % Arterial Blood pH 7.27 Arterial Blood Partial Pressure CO2 35 mmHg Arterial Blood Partial Pressure O2 81 mmHg Arterial Blood Oxygen Content 14.4 Vol % Arterial Blood Carboxyhemoglobin 0.7 % Arterial Blood Methemoglobin 1.4 % Blood Gas Hemoglobin 11.2 G/DL Oxygen Delivery Device VENTILATOR Blood Gas Ventilator Setting PC/AC Blood Gas Inspired Oxygen 80 % Imaging Last Impressions Head CT 12/27/16 0508 Signed Impressions: Service Date/Time: Tuesday, December 27, 2016 05:53 - CONCLUSION: Normal examination. Daron Humphrey MD Chest X-Ray 12/27/16 0508 Signed Impressions: Service Date/Time: Tuesday, December 27, 2016 05:11 - CONCLUSION: 1. Intubation and placement of nasogastric tube. 2. No acute cardiopulmonary disease. Daron Humphrey MD Abdomen/Pelvis CT 12/27/16 0000 Signed Impressions: Service Date/Time: Tuesday, December 27, 2016 17:03 - CONCLUSION: 1. Examination is degraded by breathing motion artifact. 2. Concern for inflammatory process involving the pancreas. No pseudocyst or ductal dilatation observed. 3. Trace amount ascites. 4. Left lower lobe consolidation. 5. Right basilar atelectasis. Ambrosio Nevarez Jr., MD Abdomen Ultrasound 12/27/16 0000 Signed Impressions: Service Date/Time: Tuesday, December 27, 2016 10:52 - CONCLUSION: 1. Echogenic kidneys which can be seen with medical renal disease. 2. Gallbladder wall thickening. Gallstones are not seen. This is nonspecific. Processes such as acalculus cholecystitis or diffuse hepatic disease can lead to thickening of the gallbladder wall. 3. Mild ascites. Jae Hines MD Objective Remarks GENERAL: Patient is 41 yo critically ill intubated and sedated SKIN: Warm and dry. HEAD: Normocephalic. EYES: No scleral icterus. No injection or drainage. NECK: Supple, trachea midline. No JVD or lymphadenopathy. CARDIOVASCULAR: Regular rate and rhythm without murmurs, gallops, or rubs. RESPIRATORY: Breath sounds equal bilaterally. No accessory muscle use. GASTROINTESTINAL: Abdomen soft, non-tender, nondistended. MUSCULOSKELETAL: No cyanosis, or edema. Neuro: Sedated A/P Assessment and Plan 1. VDRF 2. Altered mental status. 3. Polysubstance abuse. 4. Rhabdomyolysis. 5. Acute kidney injury. 6. Elevated liver enzymes. 7. Hypoglycemia. 8. Anemia. 9 Elevated trop/NSTEMI 10. Coagulopathy 11 Lactic acidemia Plan Neuro: On Diprivan infusion for sedation. Monitor neuro status closely. CT brain in the ER negative for acute intracranial process. UDS positive for barbiturates and benzodiazepines. Pulm: On PC/AC RR 22, IP:26, IT 1.0, PEEP:8, FIO2 100%. dcerease FIO2 as johnny Continue vent support and maintain sats > 92%. Bronchodilators CV: Continue with pressors ( Levop, Vaso) keep MAP> 65 mmHg. Start stress dose steroids- HC 100mg Q8 cards is following-Dr. Horner Echo showed EF 55-60%, grade 1 diastolic dysfunction Serial lactic acid monitoring. : Monitor renal function, I&O's and avoid nephrotoxins. Cr:5.95 from 5.27, on bicarb drip- D5W+3amps bicarb@150ml/hr . On Bumex drip 1mg/hr per renal Renal is following.For HD today US abdomen: No hydronephrosis CT abd/pelvis: inflammatory process involving the pancreas. No pseudocyst or ductal dilatation observed. Trace amount ascites Left lower lobe consolidation. Right basilar atelectasis. GI: On Pepcid at 10 mg b.i.d. for GI prophylaxis. On Lactulose 30ml BID. Monitor NH4 level. Monitor LFT's, GI is following on Mucomyst per protocol. US liver: Gallbladder wall thickening. Gallstones are not seen. Mild Ascites Start trickle feeds with Nepro. ID: Continue with abx ( Vanco, Zosyn) Monitor for signs of infections(fever and WBC). Sputum cx: GNR, Beta strep. ID eval 12/27 BC: NGTD. Check strep pneumonia and Legionella urinary Ag Heme: Monitor CBC and coags- Endo: SSI with Accu-Chek q. 6-hour and continue with bicarb drip. GI prophylaxis with Pepcid 10 mg b.i.d. and DVT prophylaxis with SCDs, Lines: Right femoral central line was placed in the ED 12/27 Patient is critically ill with respiratory failure, altered mental status, renal failure, liver failure. CCT 35 mins Evelyn Bliss MD Dec 29, 2016 08:30
[2016-12-29] MEDS: VASOPRESSIN 40 U/D5W 100 ML Titrate, Post Cardiac Surgery IV PRN ×4 (09:13→21:43)
--- NOTE | 2016-12-29 09:33 | PD.PROCEDR ---
Central Line Procedure REASON FOR PROCEDURE Central venous acces for Hemodialysis PROCEDURE PERFORMED Central line placement: Right IJ vascath CONSENT Informed consent for procedure was obtained. The risks and benefits of the procedure were discussed to include but limited to bleeding, clot formation, infection, and even . ANESTHESIA Local injection of 1% Lidocaine DESCRIPTION OF THE PROCEDURE The patient was placed in supine, mild Trendelenburg position. The area was exposed and cleansed with ChloraPrep, times two. Large sterile drape was used to cover the patient, with the site exposed, under sterile conditions including cap, face mask, sterile gown, and sterile gloves. On single attempt, the introducer needle was inserted with negative pressure in syringe and venous flash was obtained. The guide wire was then advanced without any restriction and the needle was removed. The dilator was used without any complications. Using Seldinger technique the catheter was advanced over the guide wire to a depth of 20 centimeters. The guide wire was removed. All ports were aspirated with dark venous blood return and flushed easily with sterile saline. All ports were capped. Antibiotic disc was placed around central line at puncture site. The central line was secured to the skin with two interrupted 2.0 silk sutures. The area was bandaged with sterile see-through central line bandage. RADIOLOGICAL DATA Ultrasound guidance was used to locate right IJ vein. CXR ordered to verify line placement. COMPLICATIONS: No apparent complications ESTIMATED BLOOD LOSS: Less than 1 cc. Evelyn Bliss MD Dec 29, 2016 09:33
--- NOTE | 2016-12-29 09:34 | PD.PROCEDR ---
Central Line Procedure REASON FOR PROCEDURE Central venous access PROCEDURE PERFORMED Central line placement:Left IJ CVP CONSENT Informed consent for procedure was obtained . The risks and benefits of the procedure were discussed to include but limited to bleeding, clot formation, infection, and even . ANESTHESIA Local injection of 1% Lidocaine DESCRIPTION OF THE PROCEDURE The patient was placed in supine, mild Trendelenburg position. The area was exposed and cleansed with ChloraPrep, times two. Large sterile drape was used to cover the patient, with the site exposed, under sterile conditions including cap, face mask, sterile gown, and sterile gloves. On single attempt, the introducer needle was inserted with negative pressure in syringe and venous flash was obtained. The guide wire was then advanced without any restriction and the needle was removed. The dilator was used without any complications. Using Seldinger technique the catheter was advanced over the guide wire to a depth of 20 centimeters. The guide wire was removed. All ports were aspirated with dark venous blood return and flushed easily with sterile saline. All ports were capped. Antibiotic disc was placed around central line at puncture site. The central line was secured to the skin with two interrupted 2.0 silk sutures. The area was bandaged with sterile see-through central line bandage. RADIOLOGICAL DATA Ultrasound guidance was used to locate left IJ vein. CXR ordered to verify line placement. COMPLICATIONS: No apparent complications ESTIMATED BLOOD LOSS: Less than 1 cc. Evelyn Bliss MD Dec 29, 2016 09:34
[2016-12-29] MEDS ORDERED: SODIUM CHLOR 0.9% 1000 ML INJ 1,000 ML IV PRN (09:58)
[2016-12-29] MEDS ORDERED: SODIUM CHLOR 0.9% 1000 ML INJ 1,000 ML OTHER PRN ×2 (09:58)
[2016-12-29] MEDS ORDERED: MANNITOL 12.5 GM/50 ML VIAL IV PRN (10:00)
[2016-12-29] MEDS ORDERED: ACETAMINOPHEN 325 MG TAB PO PRN (10:00)
[2016-12-29] MEDS ORDERED: cloNIDine HCL 0.1 MG TAB PO PRN (10:00)
[2016-12-29] MEDS ORDERED: GENTAMICIN SULFATE (DIALYSIS USE ONLY) 20 MG/2 ML VIAL OTHER PRN (10:00)
[2016-12-29] MEDS ORDERED: ONDANSETRON HCL 4 MG/2 ML VIAL IV PUSH PRN (10:00)
[2016-12-29] MEDS ORDERED: VANCOMYCIN 1,500 MG/NS 500 ML IV ONE ×2 (10:00)
[2016-12-29] MEDS ORDERED: diphenhydrAMINE HCL 25 MG CAP PO PRN (10:00)
[2016-12-29] MEDS ORDERED: SODIUM CHLORIDE 0.9% FLUSH 10 ML FLUSH IV FLUSH PRN (10:00)
[2016-12-29] MEDS ORDERED: HEPARIN SODIUM - IV 10,000 UNITS/10 ML VIAL IV FLUSH PRN (10:00)
[2016-12-29] MEDS ORDERED: ALBUMIN 25% INJ 100 ML IV PRN (10:00)
[2016-12-29] MEDS ORDERED: HEPARIN SODIUM - IV 10,000 UNITS/10 ML VIAL PRN (10:00)
[2016-12-29] MEDS ORDERED: NITROGLYCERIN 0.4 MG SL 25 TABS/BTL SL PRN (10:00)
[2016-12-29] MEDS ORDERED: GELATIN 12 MM/7 MM FOAM TOP PRN (10:00)
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
--- NOTE | 2016-12-29 10:20 | RADRPT ---
EXAM DATE/TIME: 12/29/2016 09:36 [facility] COMPARISON: CHEST SINGLE AP, December 27, 2016, 5:11. INDICATIONS : VDRF. MEDICAL HISTORY : Unobtainable. SURGICAL HISTORY : Unobtainable. ENCOUNTER: Subsequent ACUITY: 2 days PAIN SCORE: Non-responsive. LOCATION: Bilateral chest FINDINGS: An endotracheal tube is seen with the tip just within the origin of the right mainstem bronchus. The nasogastric tube is coiled in the stomach with the tip projecting towards the antrum. Right sided aristeo lysis catheter has been placed. No pneumothorax. Low lung volumes. Heart is normal in size. No effusi ons. Left-sided central line. CONCLUSION: 1. No pneumothoraces following line placement. 2. An endotracheal tube within the right mainstem bronchus. Suggest retracting the endotracheal tube 1-2 cm. Ambrosio Nevarez Jr., MD on December 29, 2016 at 10:16 Board Certified Radiologist. This report was verified electronically.
--- NOTE | 2016-12-29 10:21 | RADRPT ---
EXAM DATE/TIME: 12/29/2016 09:42 [facility] COMPARISON: CT ABDOMEN & PELVIS W/O CONTRAST, December 27, 2016, 17:03. INDICATIONS : Abdominal distention. MEDICAL HISTORY : Unobtainable. SURGICAL HISTORY : Unobtainable. ENCOUNTER: Subsequent ACUITY: 2 days PAIN SCORE: Non-responsive. LOCATION: Abdomen FINDINGS: 2 supine frontal views of the abdomen show a gas distended colon. This is unchanged in the prior CT. No dilated loops of small bowel appreciated. No gross pneumoperitoneum. No organomegaly. Right groin central line. CONCLUSION: Gas distended colon similar to the prior study. No dilated loops of small bowel observed. Ambrosio Nevarez Jr., MD on December 29, 2016 at 10:18 Board Certified Radiologist. This report was verified electronically.
[2016-12-29] MEDS ORDERED: SENNOSIDES SYRUP 8.8 MG/5 ML CUP PO SCH (10:30)
[2016-12-29] MEDS ORDERED: MICAFUNGIN INJ 100 MG in SODIUM CHLORIDE 0.9% INJ 100 ML IV SCH (11:00)
--- NOTE | 2016-12-29 11:25 | RADRPT ---
EXAM DATE/TIME: 12/29/2016 10:07 [facility] COMPARISON: No previous studies available for comparison. INDICATIONS : Swelling. MEDICAL HISTORY : Unobtainable. SURGICAL HISTORY : Unobtainable. ENCOUNTER: Subsequent ACUITY: 2 days PAIN SCORE: Non-responsive. LOCATION: Right hand. FINDINGS: Two view examination of the right hand demonstrates no soft tissue swelling, dislocation, or fracture . The joint spaces are maintained. Bony mineralization is normal. CONCLUSION: Unremarkable limited examination of the right hand. Ambrosio Nevarez Jr., MD on December 29, 2016 at 11:22 Board Certified Radiologist. This report was verified electronically.
[2016-12-29] MEDS ORDERED: SODIUM BICARBONATE 8.4% INJ 50 MEQ/50 ML SYR ONE (11:47)
[2016-12-29] MEDS ORDERED: HYDROCORTISONE SOD SUCCINATE 100 MG VIAL ONE (11:47)
[2016-12-29] MEDS: INSULIN NovoLIN REGULAR SUPPLEMENTAL SCALE SQ SCH ×4 (12:00→22:56)
[2016-12-29] MEDS ORDERED: TERBUTALINE INJ 1 MG/ML AMP SQ PRN (12:00)
[2016-12-29] MEDS ORDERED: SODIUM BICARBONATE 8.4% INJ 50 MEQ/50 ML SYR IV PUSH ONE (12:15)
[2016-12-29] MEDS: HYDROCORTISONE SOD SUCCINATE 100 MG VIAL IV PUSH SCH ×2 (12:36→20:00)
[2016-12-29] MEDS: DOCUSATE SODIUM 100 MG/10 ML UDC PO SCH ×2 (12:36→20:17)
[2016-12-29] MEDS: PHENYLEPHRINE INJ 40 MG in DEXTROSE 5% IN WATE 500 ML INJ 496 ML IV PRN ×8 (12:37→23:20)
[2016-12-29] MEDS ORDERED: KCL/AQUEOUS SOLN Dialysate additive PRN (13:15)
[2016-12-29] MEDS ORDERED: HEPARIN IV 10,000 U/10 ML VIAL PRIMING IV PUSH PRN (13:15)
--- NOTE | 2016-12-29 13:55 | HHI.HCPN ---
Reason for visit a. To assist with evaluation and management of symptoms including: dyspnea, pain. b. To assist medical decision maker(s) with: better understanding of current medical conditions; weighing benefits/burdens of medical treatment options; making medical treatment decisions. . (Aniya Chung) Subjective/Interval History Patient seen and examined in ICU. No family at bedside. Spoke with nurse, Michelle. Patient remains on mech vent, FiO2 100%, PEEP 10. Now on multiple pressors with persistent hypotension. Vas-cath and central line placed. Worsening renal and liver function. Patient made only 8cc urine overnight per nurse report. Tachycardic. ID has been consulted, final culture results pending. Tmax 100.9. No obvious signs of pain or anxiety remains on Diprivan. . Family/friend interactions Spoke with mother, Vesna via telephone. Medical update provided including changes overnight and overall worsening condition, risk of her coding, possibility of dialysis not being able to be done due to hypotension and critical condition. Vesna verbalizes understanding. She again verbalizes desire for continued aggressive care including FULL CODE. She does ask if family should come "just in case she doesn't survive." I advised we are doing everything we can however despite those efforts she may not survive. . (Aniya Chung) Advance Directives Living Will: Never completed Health Care Surrogate: Never completed Durable Power of Composing Room Supervisor: Never completed (Aniya Chung) Advance Directive Specifics Health Care Surrogate(s): Patient is incapacitated to make her own healthcare decisions, uncertain if she will regain capacity. Single. No Children. According to [place] statutes,health care proxy decision making falls to a parent. . Documented care wishes: None. Significant change in goals: FULL CODE. Continue aggressive care including HD. . (Aniya Chung) Objective Vital Signs Date Time Temp Pulse Resp B/P (MAP) Pulse Ox O2 Delivery O2 Flow Rate FiO2 12/29/16 12:37 116 89/55 12/29/16 10:35 117 102/75 12/29/16 09:51 90 100 12/29/16 09:13 117 69/49 12/29/16 08:00 100.5 119 21 89/51 (64) 93 12/29/16 08:00 119 12/29/16 08:00 100 12/29/16 07:33 119 87/51 12/29/16 06:00 116 12/29/16 04:10 93 80 12/29/16 04:00 100.9 120 22 85/53 (64) 94 12/29/16 04:00 120 12/29/16 04:00 80 12/29/16 02:11 121 104/57 12/29/16 02:00 121 12/29/16 00:40 93 80 12/29/16 00:00 99.9 122 24 103/56 (72) 92 12/29/16 00:00 40 12/29/16 00:00 122 12/28/16 23:49 92 100 12/28/16 22:00 117 12/28/16 20:38 95 40 12/28/16 20:00 99.5 113 22 99/65 (76) 95 12/28/16 20:00 113 12/28/16 20:00 40 12/28/16 18:46 108 96/53 12/28/16 18:00 122 12/28/16 16:00 105 12/28/16 16:00 40 12/28/16 16:00 99.1 105 16 75/41 (52) 96 12/28/16 15:48 100 40 12/28/16 14:00 113 Intake & Output 12/29/16 12/29/16 07:00 19:00 Intake Total 2995 ml 970 ml Output Total 10 ml Balance 2985 ml 970 ml Intake IV Total 2995 ml 970 ml Output Urine Total 10 ml # Bowel Movements 0 Physical Exam CONSTITUTIONAL/GENERAL: This is an adequately nourished patient, [facility]. TUBES/LINES/DRAINS: ETT, OG, right IJ vas-cath and left IJ central line, PIV right AC, Brower, right femoral central line, bilateral soft wrist restraints, SCDs SKIN: Track perry bilateral UEs, bruising and scabs on extremities. Extremities cool to touch. Mottling left > right foot. ENT: Unable to assess hearing due to condition. Nose without bleeding or purulent drainage. No teeth. NECK: Trachea midline. CARDIOVASCULAR: Tachycardic. RESPIRATORY/CHEST: Unlabored respirations on vent. scattered course breath sounds. GASTROINTESTINAL: Abdomen distended. absent BS. GENITOURINARY: Without palpable bladder distension. Brower catheter in place, no urine in bag. MUSCULOSKELETAL: Extremities with edema. + mottling bilateral toes left > right. NEUROLOGICAL: Sedated. No withdraw to pain. PSYCHIATRIC: Sedated. . (Aniya Chung) Diagnostic Tests Laboratory Laboratory Tests Test 12/27/16 04:56 12/27/16 05:10 12/27/16 08:45 12/27/16 09:30 Blood Gas Puncture Site FEMORAL Blood Gas Patient Temperature 98.6 Blood Gas HCO3 14 mmol/L (22-26) Blood Gas Base Excess -13.0 mmol/L (-2-2) Blood Gas Oxygen Saturation 98 % (90-100) Arterial Blood pH 7.19 (7.380-7.420) Arterial Blood Partial Pressure CO2 38 mmHg (38-42) Arterial Blood Partial Pressure O2 446 mmHG (61-120) Arterial Blood Oxygen Content 15.9 Vol % (12.0-20.0) Arterial Blood Carboxyhemoglobin 0.9 % (0-4) Arterial Blood Methemoglobin 0.6 % (0-2) Blood Gas Hemoglobin 10.7 G/DL (12.0-16.0) Oxygen Delivery Device VENT Blood Gas Ventilator Setting Blood Gas Inspired Oxygen 100 % White Blood Count 11.2 TH/MM3 (4.0-11.0) Red Blood Count 4.02 MIL/MM3 (4.00-5.30) Hemoglobin 10.9 GM/DL (11.6-15.3) Hematocrit 34.5 % (35.0-46.0) Mean Corpuscular Volume 85.9 FL (80.0-100.0) Mean Corpuscular Hemoglobin 27.1 PG (27.0-34.0) Mean Corpuscular Hemoglobin Concent 31.6 % (32.0-36.0) Red Cell Distribution Width 15.9 % (11.6-17.2) Platelet Count 136 TH/MM3 (150-450) Mean Platelet Volume 8.6 FL (7.0-11.0) Neutrophils (%) (Auto) 76.6 % (16.0-70.0) Lymphocytes (%) (Auto) 16.0 % (9.0-44.0) Monocytes (%) (Auto) 7.2 % (0.0-8.0) Eosinophils (%) (Auto) 0.0 % (0.0-4.0) Basophils (%) (Auto) 0.2 % (0.0-2.0) Neutrophils # (Auto) 8.6 TH/MM3 (1.8-7.7) Lymphocytes # (Auto) 1.8 TH/MM3 (1.0-4.8) Monocytes # (Auto) 0.8 TH/MM3 (0-0.9) Eosinophils # (Auto) 0.0 TH/MM3 (0-0.4) Basophils # (Auto) 0.0 TH/MM3 (0-0.2) CBC Comment AUTO DIFF Differential Comment AUTO DIFF CONFIRMED Prothrombin Time 20.6 SEC (9.8-11.6) Prothromb Time International Ratio 1.8 RATIO Activated Partial Thromboplast Time 37.8 SEC (24.3-30.1) Urine Color YELLOW (YELLW/STRAW) Urine Turbidity HAZY (CLEAR) Urine pH 6.0 (5.0-8.5) Urine Specific Letcher 1.011 (1.002-1.035) Urine Protein 30 mg/dL (NEG-TRACE) Urine Glucose (UA) NEG mg/dL (NEG) Urine Ketones NEG mg/dL (NEG) Urine Occult Blood MOD (NEG) Urine Nitrite NEG (NEG) Urine Bilirubin NEG (NEG) Urine Urobilinogen LESS THAN 2.0 MG/DL (LESS Urine Leukocyte Esterase NEG (NEG) Urine RBC LESS THAN 1 /hpf (0-3) Urine WBC 4 /hpf (0-5) Urine Squamous Epithelial Cells 2 /hpf (0-5) Urine Bacteria RARE /hpf (NONE) Urine Hyaline Casts 9 /lpf (RARE) Microscopic Urinalysis Comment CULT NOT INDICATED Blood Urea Nitrogen 16 MG/DL (7-18) Creatinine 3.39 MG/DL (0.50-1.00) Random Glucose 28 MG/DL (74-106) Total Protein 5.5 GM/DL (6.4-8.2) Albumin 2.6 GM/DL (3.4-5.0) Calcium Level 7.0 MG/DL (8.5-10.1) Alkaline Phosphatase 135 U/L (45-117) Aspartate Amino Transf (AST/SGOT) 1646 U/L (15-37) Alanine Aminotransferase (ALT/SGPT) 742 U/L (10-53) Total Bilirubin 0.2 MG/DL (0.2-1.0) Sodium Level 141 MEQ/L (136-145) Potassium Level 5.5 MEQ/L (3.5-5.1) Chloride Level 106 MEQ/L (98-107) Carbon Dioxide Level 21.9 MEQ/L (21.0-32.0) Anion Gap 13 MEQ/L (5-15) Estimat Glomerular Filtration Rate 12 ML/MIN (>89) Protein Corrected Calcium 7.8 MG/DL (8.5-10.1) Total Creatine Kinase 52789 U/L (26-192) Creatine Kinase MB 155.5 NG/ML (0.5-3.6) Creatine Kinase MB % 1.5 % (0.0-4.0) Salicylates Level 2.7 MG/DL (2.8-20.0) Urine Opiates Screen NEG (NEG) Acetaminophen Level 5.3 MCG/ML (10.0-30.0) Urine Barbiturates Screen POS (NEG) Urine Amphetamines Screen NEG (NEG) Urine Benzodiazepines Screen POS (NEG) Urine Cocaine Screen NEG (NEG) Urine Cannabinoids Screen NEG (NEG) Ethyl Alcohol Level LESS THAN 3 MG/DL (0-5) Nasal Screen MRSA (PCR) MRSA DETECTED (NOT DETECT) Lactic Acid Level 5.9 mmol/L (0.4-2.0) Ammonia 42 MCMOL/L (11-32) Test 12/27/16 09:47 12/27/16 10:45 12/27/16 13:45 12/27/16 14:53 White Blood Count 24.7 TH/MM3 (4.0-11.0) Red Blood Count 5.11 MIL/MM3 (4.00-5.30) Hemoglobin 13.9 GM/DL (11.6-15.3) Hematocrit 43.2 % (35.0-46.0) Mean Corpuscular Volume 84.5 FL (80.0-100.0) Mean Corpuscular Hemoglobin 27.2 PG (27.0-34.0) Mean Corpuscular Hemoglobin Concent 32.2 % (32.0-36.0) Red Cell Distribution Width 15.6 % (11.6-17.2) Platelet Count 161 TH/MM3 (150-450) Mean Platelet Volume 8.9 FL (7.0-11.0) Neutrophils (%) (Auto) 81.8 % (16.0-70.0) Lymphocytes (%) (Auto) 12.4 % (9.0-44.0) Monocytes (%) (Auto) 5.7 % (0.0-8.0) Eosinophils (%) (Auto) 0.0 % (0.0-4.0) Basophils (%) (Auto) 0.1 % (0.0-2.0) Neutrophils # (Auto) 20.2 TH/MM3 (1.8-7.7) Lymphocytes # (Auto) 3.1 TH/MM3 (1.0-4.8) Monocytes # (Auto) 1.4 TH/MM3 (0-0.9) Eosinophils # (Auto) 0.0 TH/MM3 (0-0.4) Basophils # (Auto) 0.0 TH/MM3 (0-0.2) CBC Comment AUTO DIFF Differential Total Cells Counted 100 Neutrophils % (Manual) 55 % (16-70) Band Neutrophils % 25 % (0-6) Lymphocytes % 16 % (9-44) Monocytes % 3 % (0-8) Neutrophils # (Manual) 20.0 TH/MM3 (1.8-7.7) Metamyelocytes 1 % (0-1) Nucleated Red Blood Cells 1 /100 WBC (0-0) Differential Comment FINAL DIFF MANUAL Platelet Estimate NORMAL (NORMAL) Platelet Morphology Comment NORMAL (NORMAL) Blood Urea Nitrogen 23 MG/DL (7-18) Creatinine 3.54 MG/DL (0.50-1.00) Random Glucose 162 MG/DL (74-106) Total Protein 6.2 GM/DL (6.4-8.2) Albumin 2.9 GM/DL (3.4-5.0) Calcium Level 6.5 MG/DL (8.5-10.1) Alkaline Phosphatase 184 U/L (45-117) Aspartate Amino Transf (AST/SGOT) 6281 U/L (15-37) Alanine Aminotransferase (ALT/SGPT) 2564 U/L (10-53) Total Bilirubin 0.4 MG/DL (0.2-1.0) Sodium Level 136 MEQ/L (136-145) Potassium Level 6.5 MEQ/L (3.5-5.1) 4.2 MEQ/L (3.5-5.1) Chloride Level 105 MEQ/L (98-107) Carbon Dioxide Level 17.9 MEQ/L (21.0-32.0) Anion Gap 13 MEQ/L (5-15) Estimat Glomerular Filtration Rate 11 ML/MIN (>89) Protein Corrected Calcium 6.9 MG/DL (8.5-10.1) Blood Gas Puncture Site LT RADIAL Blood Gas Patient Temperature 98.6 Blood Gas HCO3 16 mmol/L (22-26) Blood Gas Base Excess -10.3 mmol/L (-2-2) Blood Gas Oxygen Saturation 94 % (90-100) Arterial Blood pH 7.25 (7.380-7.420) Arterial Blood Partial Pressure CO2 37 mmHg (38-42) Arterial Blood Partial Pressure O2 102 mmHg (61-120) Arterial Blood Oxygen Content 18.4 Vol % (12.0-20.0) Arterial Blood Carboxyhemoglobin 1.0 % (0-4) Arterial Blood Methemoglobin 1.2 % (0-2) Blood Gas Hemoglobin 13.9 G/DL (12.0-16.0) Oxygen Delivery Device VENTILATOR Blood Gas Ventilator Setting SEE COMMENTS Blood Gas Inspired Oxygen 40 % Lactic Acid Level 5.5 mmol/L (0.4-2.0) Total Creatine Kinase 38127 U/L (26-192) Creatine Kinase MB 427.9 NG/ML (0.5-3.6) Creatine Kinase MB % 0.9 % (0.0-4.0) Troponin I 33.00 NG/ML (0.02-0.05) Hepatitis A IgM Antibody NEGATIVE (NEGATIVE) Hepatitis B Surface Antigen NEGATIVE (NEGATIVE) Hepatitis B Core IgM Antibody NEGATIVE (NEGATIVE) Hepatitis C Antibody NEGATIVE (NEGATIVE) Test 12/27/16 15:50 12/27/16 20:06 12/27/16 22:37 12/28/16 05:07 White Blood Count 15.8 TH/MM3 (4.0-11.0) 18.5 TH/MM3 (4.0-11.0) Red Blood Count 4.44 MIL/MM3 (4.00-5.30) 4.67 MIL/MM3 (4.00-5.30) Hemoglobin 11.9 GM/DL (11.6-15.3) 12.8 GM/DL (11.6-15.3) Hematocrit 36.9 % (35.0-46.0) 38.8 % (35.0-46.0) Mean Corpuscular Volume 83.0 FL (80.0-100.0) 83.1 FL (80.0-100.0) Mean Corpuscular Hemoglobin 26.7 PG (27.0-34.0) 27.5 PG (27.0-34.0) Mean Corpuscular Hemoglobin Concent 32.2 % (32.0-36.0) 33.0 % (32.0-36.0) Red Cell Distribution Width 15.4 % (11.6-17.2) 15.9 % (11.6-17.2) Platelet Count 153 TH/MM3 (150-450) 162 TH/MM3 (150-450) Mean Platelet Volume 9.0 FL (7.0-11.0) 9.5 FL (7.0-11.0) Prothrombin Time 21.0 SEC (9.8-11.6) Prothromb Time International Ratio 1.8 RATIO Activated Partial Thromboplast Time 34.5 SEC (24.3-30.1) 55.8 SEC (24.3-30.1) 81.9 SEC (24.3-30.1) Lactic Acid Level 3.6 mmol/L (0.4-2.0) Troponin I GREATER THAN 40.00 NG/ML GREATER THAN 40.00 NG/ML Neutrophils (%) (Auto) 89.2 % (16.0-70.0) Lymphocytes (%) (Auto) 7.1 % (9.0-44.0) Monocytes (%) (Auto) 3.2 % (0.0-8.0) Eosinophils (%) (Auto) 0.1 % (0.0-4.0) Basophils (%) (Auto) 0.4 % (0.0-2.0) Neutrophils # (Auto) 16.5 TH/MM3 (1.8-7.7) Lymphocytes # (Auto) 1.3 TH/MM3 (1.0-4.8) Monocytes # (Auto) 0.6 TH/MM3 (0-0.9) Eosinophils # (Auto) 0.0 TH/MM3 (0-0.4) Basophils # (Auto) 0.1 TH/MM3 (0-0.2) CBC Comment DIFF FINAL Differential Comment Blood Urea Nitrogen 36 MG/DL (7-18) Creatinine 4.93 MG/DL (0.50-1.00) Random Glucose 126 MG/DL (74-106) Total Protein 5.1 GM/DL (6.4-8.2) Albumin 2.1 GM/DL (3.4-5.0) Calcium Level 6.3 MG/DL (8.5-10.1) Alkaline Phosphatase 191 U/L (45-117) Aspartate Amino Transf (AST/SGOT) 9813 U/L (15-37) Alanine Aminotransferase (ALT/SGPT) 3950 U/L (10-53) Total Bilirubin 0.9 MG/DL (0.2-1.0) Sodium Level 135 MEQ/L (136-145) Potassium Level 3.6 MEQ/L (3.5-5.1) Chloride Level 95 MEQ/L (98-107) Carbon Dioxide Level 23.4 MEQ/L (21.0-32.0) Anion Gap 17 MEQ/L (5-15) Estimat Glomerular Filtration Rate 10 ML/MIN (>89) Protein Corrected Calcium 7.3 MG/DL (8.5-10.1) Total Creatine Kinase 40227 U/L (26-192) Creatine Kinase MB 397.7 NG/ML (0.5-3.6) Creatine Kinase MB % 0.6 % (0.0-4.0) Amylase Level 206 U/L (25-115) Test 12/28/16 09:00 12/28/16 11:40 12/28/16 13:48 12/28/16 15:00 Prothrombin Time 22.1 SEC (9.8-11.6) 22.4 SEC (9.8-11.6) Prothromb Time International Ratio 1.9 RATIO 2.0 RATIO Activated Partial Thromboplast Time 176.7 SEC (24.3-30.1) 49.0 SEC (24.3-30.1) Lactic Acid Level 9.1 mmol/L (0.4-2.0) Troponin I GREATER THAN 40.00 NG/ML Lipase 179 U/L (73-393) Tumor Marker Alpha Fetoprotein 0.9 NG/ML (0.5-8.0) Test 12/28/16 16:37 12/28/16 17:55 12/28/16 21:22 12/29/16 04:10 Blood Urea Nitrogen 41 MG/DL (7-18) 45 MG/DL (7-18) Creatinine 5.27 MG/DL (0.50-1.00) 5.95 MG/DL (0.50-1.00) Random Glucose 125 MG/DL (74-106) 116 MG/DL (74-106) Total Protein 3.6 GM/DL (6.4-8.2) 4.3 GM/DL (6.4-8.2) Calcium Level 5.5 MG/DL (8.5-10.1) 5.6 MG/DL (8.5-10.1) Sodium Level 139 MEQ/L (136-145) 133 MEQ/L (136-145) Potassium Level 3.3 MEQ/L (3.5-5.1) 3.5 MEQ/L (3.5-5.1) Chloride Level 94 MEQ/L (98-107) 86 MEQ/L (98-107) Carbon Dioxide Level 21.8 MEQ/L (21.0-32.0) 19.6 MEQ/L (21.0-32.0) Anion Gap 23 MEQ/L (5-15) 27 MEQ/L (5-15) Estimat Glomerular Filtration Rate 9 ML/MIN (>89) 8 ML/MIN (>89) Protein Corrected Calcium 7.1 MG/DL (8.5-10.1) 6.8 MG/DL (8.5-10.1) Iron Level 61 MCG/DL (50-170) Total Iron Binding Capacity 132 MCG/DL (250-450) Percent Iron Saturation 46.4 % (20-50) Ferritin 6358 NG/ML (8-252) Total Bilirubin 0.8 MG/DL (0.2-1.0) 1.1 MG/DL (0.2-1.0) Direct Bilirubin 0.3 MG/DL (0.0-0.2) 0.6 MG/DL (0.0-0.2) Indirect Bilirubin 0.5 MG/DL (0.0-0.8) Aspartate Amino Transf (AST/SGOT) 6040 U/L (15-37) 7148 U/L (15-37) Alanine Aminotransferase (ALT/SGPT) 2859 U/L (10-53) 3341 U/L (10-53) Alkaline Phosphatase 171 U/L (45-117) 325 U/L (45-117) Albumin 1.4 GM/DL (3.4-5.0) 1.6 GM/DL (3.4-5.0) Ammonia 59 MCMOL/L (11-32) 66 MCMOL/L (11-32) Lactic Acid Level 10.5 mmol/L (0.4-2.0) White Blood Count 22.3 TH/MM3 (4.0-11.0) Red Blood Count 4.10 MIL/MM3 (4.00-5.30) Hemoglobin 11.4 GM/DL (11.6-15.3) Hematocrit 34.2 % (35.0-46.0) Mean Corpuscular Volume 83.4 FL (80.0-100.0) Mean Corpuscular Hemoglobin 27.8 PG (27.0-34.0) Mean Corpuscular Hemoglobin Concent 33.3 % (32.0-36.0) Red Cell Distribution Width 15.9 % (11.6-17.2) Platelet Count 156 TH/MM3 (150-450) Mean Platelet Volume 9.6 FL (7.0-11.0) Neutrophils (%) (Auto) 89.6 % (16.0-70.0) Lymphocytes (%) (Auto) 7.3 % (9.0-44.0) Monocytes (%) (Auto) 2.6 % (0.0-8.0) Eosinophils (%) (Auto) 0.1 % (0.0-4.0) Basophils (%) (Auto) 0.4 % (0.0-2.0) Neutrophils # (Auto) 20.0 TH/MM3 (1.8-7.7) Lymphocytes # (Auto) 1.6 TH/MM3 (1.0-4.8) Monocytes # (Auto) 0.6 TH/MM3 (0-0.9) Eosinophils # (Auto) 0.0 TH/MM3 (0-0.4) Basophils # (Auto) 0.1 TH/MM3 (0-0.2) CBC Comment AUTO DIFF Differential Total Cells Counted 100 Neutrophils % (Manual) 55 % (16-70) Band Neutrophils % 36 % (0-6) Lymphocytes % 5 % (9-44) Monocytes % 3 % (0-8) Neutrophils # (Manual) 20.5 TH/MM3 (1.8-7.7) Metamyelocytes 1 % (0-1) Differential Comment FINAL DIFF MANUAL Platelet Estimate NORMAL (NORMAL) Platelet Morphology Comment NORMAL (NORMAL) Prothrombin Time 20.8 SEC (9.8-11.6) Prothromb Time International Ratio 1.8 RATIO Total Creatine Kinase 35396 U/L (26-192) Creatine Kinase MB 172.8 NG/ML (0.5-3.6) Creatine Kinase MB % 0.3 % (0.0-4.0) Random Vancomycin Level 12.0 COMMENT Test 12/29/16 05:15 12/29/16 10:50 Blood Gas Puncture Site LT BRACHIAL Blood Gas Patient Temperature 98.6 Blood Gas HCO3 16 mmol/L (22-26) Blood Gas Base Excess -9.7 mmol/L (-2-2) Blood Gas Oxygen Saturation 91 % (90-100) Arterial Blood pH 7.27 (7.380-7.420) Arterial Blood Partial Pressure CO2 35 mmHg (38-42) Arterial Blood Partial Pressure O2 81 mmHg (61-120) Arterial Blood Oxygen Content 14.4 Vol % (12.0-20.0) Arterial Blood Carboxyhemoglobin 0.7 % (0-4) Arterial Blood Methemoglobin 1.4 % (0-2) Blood Gas Hemoglobin 11.2 G/DL (12.0-16.0) Oxygen Delivery Device VENTILATOR Blood Gas Ventilator Setting PC/AC Blood Gas Inspired Oxygen 80 % Lactic Acid Level 13.8 mmol/L (0.4-2.0) (Aniya Chung) Result Diagram: 12/29/16 0410 12/29/16 0410 Microbiology Microbiology Date/Time Source Procedure Growth Status 12/29/16 10:50 Blood Peripheral Aerobic Blood Culture Pending Received 12/29/16 10:50 Blood Peripheral Anaerobic Blood Culture Pending Received 12/27/16 14:56 Blood Peripheral Aerobic Blood Culture - Preliminary NO GROWTH IN 2 DAYS Resulted 12/27/16 14:56 Blood Peripheral Anaerobic Blood Culture - Preliminary NO GROWTH IN 2 DAYS Resulted 12/27/16 13:45 Blood Peripheral Aerobic Blood Culture - Preliminary NO GROWTH IN 2 DAYS Resulted 12/27/16 13:45 Blood Peripheral Anaerobic Blood Culture - Preliminary NO GROWTH IN 2 DAYS Resulted 12/27/16 16:35 Sputum Endotracheal Gram Stain - Final Resulted 12/27/16 16:35 Sputum Culture - Preliminary Enterobacter Cloacae Beta Strep Not Group A Gram Negative Rishi Staphylococcus Aureus Resulted Imaging Last Impressions Hand X-Ray 12/29/16 0000 Signed Impressions: Service Date/Time: Thursday, December 29, 2016 10:07 - CONCLUSION: Unremarkable limited examination of the right hand. Ambrosio Nevarez Jr., MD Chest X-Ray 12/29/16 0000 Signed Impressions: Service Date/Time: Thursday, December 29, 2016 09:36 - CONCLUSION: 1. No pneumothoraces following line placement. 2. An endotracheal tube within the right mainstem bronchus. Suggest retracting the endotracheal tube 1-2 cm. Ambrosio Nevarez Jr., MD Abdomen X-Ray 12/29/16 0000 Signed Impressions: Service Date/Time: Thursday, December 29, 2016 09:42 - CONCLUSION: Gas distended colon similar to the prior study. No dilated loops of small bowel observed. Ambrosio Nevarez Jr., MD Head CT 12/27/16 0508 Signed Impressions: Service Date/Time: Tuesday, December 27, 2016 05:53 - CONCLUSION: Normal examination. Daron Humphrey MD Abdomen/Pelvis CT 12/27/16 0000 Signed Impressions: Service Date/Time: Tuesday, December 27, 2016 17:03 - CONCLUSION: 1. Examination is degraded by breathing motion artifact. 2. Concern for inflammatory process involving the pancreas. No pseudocyst or ductal dilatation observed. 3. Trace amount ascites. 4. Left lower lobe consolidation. 5. Right basilar atelectasis. Ambrosio Nevarez Jr., MD Abdomen Ultrasound 12/27/16 0000 Signed Impressions: Service Date/Time: Tuesday, December 27, 2016 10:52 - CONCLUSION: 1. Echogenic kidneys which can be seen with medical renal disease. 2. Gallbladder wall thickening. Gallstones are not seen. This is nonspecific. Processes such as acalculus cholecystitis or diffuse hepatic disease can lead to thickening of the gallbladder wall. 3. Mild ascites. Jae Hines MD Procedures * 12/29/16 - right vas- cath and left central line placed. * 12/27/16 - intubated . (Aniya Chung) Assessment and Plan Disease Oriented Problem List: (1) Respiratory arrest (2) Leukocytosis (3) Hypotension (4) Septic shock (5) Lactic acidosis (6) Acute kidney injury (7) Acute metabolic encephalopathy (8) Hypoglycemia (9) Polysubstance overdose (10) NSTEMI (non-ST elevated myocardial infarction) (11) Multiple organ failure with liver failure (12) Rhabdomyolysis Symptom Scale: (1) Chronic pain 0-10 Scale: Unable to quantify (2) Dyspnea 0-10 Scale: Unable to quantify Comment: on mech vent FiO2 100%. Pertinent Non-Medical Issues Psychosocial: Single, lives with boyfriendMalcolm. Supported by her parents and sister. Spiritual: Described as a spiritual person, declines manager landscape support at this time. Legal: Patient is incapacitated to make her own healthcare decisions, uncertain if she will regain capacity. Single. No Children. According to [place] statutes, health care proxy decision making falls to a parent. Ethical issues impacting care: No known concerns at this time. . Important Contacts * Vesna Winn, Mother/ HCP: [phone] (home) or [phone] (cell) * Daron Pa, father/ HCP: [phone] (home) or [phone] * Vania Winn, sister * Malcolm Blackman, boyfriend . Prognosis Patient admitted with respiratory failure, renal failure, NSTEMI, elevated LFTs now needing dialysis. Prognosis is likely poor will need time to further determine whether or not she has shock related organ failure vs permanent damage. . Code Status: Full Code Plan * Decision maker: Patient is incapacitated to make her own healthcare decisions , uncertain if she will regain capacity. Single. No Children. According to [place] statutes,health care proxy decision making falls to a parent. * FULL CODE * Spoke with mother via phone to provide update and again clarify goals, she again endorses patient desires for FULL CODE and wants to proceed with HD. She understands patient condition is declining since last night when we spoke. * SYMPTOMS: Pain: chronic pain and IV drug abuse. On Diprivan. Dyspnea: on mech vent. On Dipirvan. No signs of pain during my visit, No new medication recommendations at this time. * Palliative care will continue to follow to assist with clarification of treatment goals. . (Aniya Chung) Attestation To help prompt me to consider important information that might be impacting today's encounter and assessment, information from prior notes written by myself or my colleagues may have been "brought forward" into today's note. My signature on this note, however, is an attestation that I personally performed the exam, history, and/or decision-making noted today, and, unless otherwise indicated, the interactions with patient, family, and staff as well as the review of records all occurred today. I also attest that the listed assessment and stated plan reflect my best clinical judgment today based on the combination of historical information, prior notes, and today's exam/ interactions. When time spent is documented, it refers only to time spent today by the signer, or if indicated, combined time spent today by collaborating physician/nurse practitioner. (Aniya Chung) Collaborating MD Comments Chart reviewed. Case discussed with palliative care WIRE WINDER. Above note reviewed and I concur. . (Jhonny Valentino MD) Aniya Chung Dec 29, 2016 13:55 Jhonny Valentino MD Dec 31, 2016 17:17
[2016-12-29] MEDS: SODIUM BICARBONATE 8.4% INJ 50 MEQ in SODIUM CHLOR 0.45% 1000 ML INJ 1,000 ML IV SCH ×5 (14:26→21:57)
[2016-12-29] MEDS: BUMETANIDE INJ 100 ML IV SCH (15:43)
--- NOTE | 2016-12-29 16:15 | HHI.GIFU ---
Subjective Remarks Unchanged from yesterday except BP is supported on levofed. LFTs are slightly worse. She is on medication for liver failure. Also has renal failure, rhabdomyolysis. Respiratory failure. Remains critical. Objective Vitals I&O Vital Signs Date Time Temp Pulse Resp B/P (MAP) Pulse Ox O2 Delivery O2 Flow Rate FiO2 12/29/16 14:41 102 88/54 12/29/16 14:00 101 12/29/16 12:37 116 89/55 12/29/16 12:00 100.6 118 22 86/60 (69) 12/29/16 12:00 118 12/29/16 12:00 100 12/29/16 10:35 117 102/75 12/29/16 10:00 119 12/29/16 09:51 90 100 12/29/16 09:13 117 69/49 12/29/16 08:00 100.5 119 21 89/51 (64) 93 12/29/16 08:00 119 12/29/16 08:00 100 12/29/16 07:33 119 87/51 12/29/16 06:00 116 12/29/16 04:10 93 80 12/29/16 04:00 100.9 120 22 85/53 (64) 94 12/29/16 04:00 120 12/29/16 04:00 80 12/29/16 02:11 121 104/57 12/29/16 02:00 121 12/29/16 00:40 93 80 12/29/16 00:00 99.9 122 24 103/56 (72) 92 12/29/16 00:00 40 12/29/16 00:00 122 12/28/16 23:49 92 100 12/28/16 22:00 117 12/28/16 20:38 95 40 12/28/16 20:00 99.5 113 22 99/65 (76) 95 12/28/16 20:00 113 12/28/16 20:00 40 12/28/16 18:46 108 96/53 12/28/16 18:00 122 I/O 12/28/16 12/28/16 12/28/16 12/29/16 12/29/16 12/29/16 07:00 15:00 23:00 07:00 15:00 23:00 Intake Total 1550 ml 1327 ml 4063 ml 2149 ml 3425 ml 1100 ml Output Total 0 ml 36 ml 10 ml Balance 1550 ml 1327 ml 4027 ml 2139 ml 3425 ml 1100 ml Intake IV Total 1300 ml 1327 ml 3813 ml 2149 ml 3425 ml 1100 ml Other 250 ml 250 ml Output Urine Total 0 ml 35 ml 10 ml Stool Total 0 ml 1 ml Gastric Drainage Total 0 ml # Bowel Movements 0 Laboratory Laboratory Tests Test 12/28/16 16:37 12/28/16 17:55 12/28/16 21:22 12/29/16 04:10 Blood Urea Nitrogen 41 45 Creatinine 5.27 5.95 Random Glucose 125 116 Total Protein 3.6 4.3 Calcium Level 5.5 5.6 Sodium Level 139 133 Potassium Level 3.3 3.5 Chloride Level 94 86 Carbon Dioxide Level 21.8 19.6 Anion Gap 23 27 Estimat Glomerular Filtration Rate 9 8 Protein Corrected Calcium 7.1 6.8 Iron Level 61 Total Iron Binding Capacity 132 Percent Iron Saturation 46.4 Ferritin 6358 Total Bilirubin 0.8 1.1 Direct Bilirubin 0.3 0.6 Indirect Bilirubin 0.5 Aspartate Amino Transf (AST/SGOT) 6040 7148 Alanine Aminotransferase (ALT/SGPT) 2859 3341 Alkaline Phosphatase 171 325 Albumin 1.4 1.6 Ammonia 59 66 Lactic Acid Level 10.5 White Blood Count 22.3 Red Blood Count 4.10 Hemoglobin 11.4 Hematocrit 34.2 Mean Corpuscular Volume 83.4 Mean Corpuscular Hemoglobin 27.8 Mean Corpuscular Hemoglobin Concent 33.3 Red Cell Distribution Width 15.9 Platelet Count 156 Mean Platelet Volume 9.6 Neutrophils (%) (Auto) 89.6 Lymphocytes (%) (Auto) 7.3 Monocytes (%) (Auto) 2.6 Eosinophils (%) (Auto) 0.1 Basophils (%) (Auto) 0.4 Neutrophils # (Auto) 20.0 Lymphocytes # (Auto) 1.6 Monocytes # (Auto) 0.6 Eosinophils # (Auto) 0.0 Basophils # (Auto) 0.1 CBC Comment AUTO DIFF Differential Total Cells Counted 100 Neutrophils % (Manual) 55 Band Neutrophils % 36 Lymphocytes % 5 Monocytes % 3 Neutrophils # (Manual) 20.5 Metamyelocytes 1 Differential Comment FINAL DIFF MANUAL Platelet Estimate NORMAL Platelet Morphology Comment NORMAL Prothrombin Time 20.8 Prothromb Time International Ratio 1.8 Total Creatine Kinase 60455 Creatine Kinase MB 172.8 Creatine Kinase MB % 0.3 Random Vancomycin Level 12.0 Test 12/29/16 05:15 12/29/16 10:50 Blood Gas Puncture Site LT BRACHIAL Blood Gas Patient Temperature 98.6 Blood Gas HCO3 16 Blood Gas Base Excess -9.7 Blood Gas Oxygen Saturation 91 Arterial Blood pH 7.27 Arterial Blood Partial Pressure CO2 35 Arterial Blood Partial Pressure O2 81 Arterial Blood Oxygen Content 14.4 Arterial Blood Carboxyhemoglobin 0.7 Arterial Blood Methemoglobin 1.4 Blood Gas Hemoglobin 11.2 Oxygen Delivery Device VENTILATOR Blood Gas Ventilator Setting PC/AC Blood Gas Inspired Oxygen 80 Lactic Acid Level 13.8 Date/Time Source Procedure Growth Status 12/29/16 10:50 Blood Peripheral Aerobic Blood Culture Pending Received 12/29/16 10:50 Blood Peripheral Anaerobic Blood Culture Pending Received 12/27/16 16:35 Sputum Endotracheal Gram Stain - Final Resulted 12/27/16 16:35 Sputum Culture - Preliminary Enterobacter Cloacae Beta Strep Not Group A Gram Negative Rishi Staphylococcus Aureus Resulted Physical Exam HEENT: Pupils round and reactive to light; normocephalic; atraumatic; no jaundice. Throat is clear. NECK: Neck is supple, no JVD, no lymphadenopathy. CHEST: Chest is clear to auscultation and percussion. CARDIAC: Regular rate and rhythm with no murmur gallop or rubs. ABDOMEN: Soft, nondistended, nontender; no hepatosplenomegaly; bowel sounds are present in all four quadrants. EXTREMITIES: No clubbing, cyanosis, or edema. SKIN: Normal; no rash; no jaundice. MANUFACTURING JOB TITLES: No focal deficits; alert and oriented times three. Assessment and Plan Plan ASSESSMENT: - Acute hepatitis, unclear etiology, worsening elevated transaminases with worsening coagulopathy, concerning for liver failure. Her LFTs on admission were 0.2, 1646,742, 135 and have increased to T. Bili 0.9, AST 9813, ALT 3950, ALk Phosph 191. PT/INR has increased from 20.6, 1.8 to 22.1, 1.9. CPK is has increased to 10, 574 to 61,693. Also with NSTEMI, felt to be related to respiratory failure from drug od. CT Scan abdomen and pelvis ()----> Examination is degraded by breathing motion artifact. Concern for inflammatory process involving the pancreas. No pseudocyst or ductal dilatation observed. Trace amount ascites. Left lower lobe consolidation. Right basilar atelectasis. Abdominal US (12/27/16)---> Echogenic kidneys which can be seen with medical renal disease. Gallbladder wall thickening. Gallstones are not seen. Processes wuch as acalculus cholecystitis or diffuse hepatic disease can lead to thickening of the gallbladder wall. Mild ascites. Hepatitis profile pending. Unknown if she had any tylenol containing products or ETOH prior to this episode and the nurse reports that she was down for quite some time before she was brought in. ? liver failure vs. acute hepatitis (viral vs. drug induced vs. rhabdo) also with some underlying shocked liver. 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 Will get liver workup to rule out underlying liver disease. Start acetylcysteine IV per protocol prophylactically and closely monitor LFTs, Coag's, and Ammonia. - Hepatic encephalopathy. Ammonia 42. - Drug overdose. Reported hx of IVDA. Tox screen (+) Barbituates and benzodiazepines. - Respiratory failure. Vent per CCM. - NSTEMI. S/P CPR x 1 minute in ER. Troponin > 40.0. S/P Cardiology evaluation , feels likely secondary to respiratory failure from Drug overdose. On heparin gtt. - Rhabdomyolysis. CPK 61,693. - Leukocytosis. WBC 18.5. Sputum, BCx pending. Zosyn. - ARF. Creat 4.93. - DO, unclear if this was intentional vs. accidental. PLAN: - NPO for now - Acetylcysteine IV prophylactically 14,700mg over one hour 4,900mg over 4 hours 9,800mg over 16 hours - Lactulose 30mL per OGT BID - LFT, Ammonia, PT/INR q12h - Await hepatitis profile - Cont. Zosyn. - Nephrology following - CCM following - S/P Cardiology evaluation - Supportive care - Further recommendations to follow based on results of above Jose M Ricardo MD Dec 29, 2016 16:15
[2016-12-29] MEDS ORDERED: LINEZOLID 600 MG PREMIX 300 ML IV SCH (17:00)
--- NOTE | 2016-12-29 18:37 | HHI.HCPN ---
Call from nurseMichelle to request I come to meet family at bedside. Patient was started in [facility] at 2pm. She remains on mech vent, FiO2 100%, PEEP 10. Heart rate is dropping, currently in the 60's. She is maxed out on pressor support. No recordable blood pressure. Unable to obtain ABGs. Patient is mottling head to toe. Met with family (mother, father, sister, aunt, uncle and brother in law) and nurse Michelle at bedside. Medical update provided. Patient appears to be dying despite continued aggressive care. Family is aware and verbalizes understanding. After family had some time to speak they elected alternate code status: Intubation Only. Offered transition to comfort measures with withdrawal of life support, family is not yet ready to consider comfort measures. Palliative care will meet with family again in AM. Mixing Machine Tender visited. Questions answered, offered support. . Aniya Chung Dec 29, 2016 18:36
--- NOTE | 2016-12-29 19:58 | HHI.NPPN ---
Subjective History of Present Illness 36-year-old female with past medical history of possible seizure disorder, history of polysubstance abuse who was brought to the hospital by EMS when she was found unresponsive. I was called to see the patient because of elevated BUN and creatinine. Her creatinine on admission was 3.3 and now it is 3.5 and also she has high potassium of 6.5. The patient is intubated and she is not able to give any history. Most of the history was taken from the patient's chart and some from the mother who was at the bedside but she also does not know much about her medical history. Additional Remarks Patient remain intubated , sedated and on pressors, BP is on lower side. Objective Data Data 12/29/16 12/30/16 19:00 07:00 Intake Total 6777 ml Output Total 0 ml Balance 6777 ml Intake IV Total 6777 ml Output Urine Total 0 ml Vital Signs Date Time Temp Pulse Resp B/P (MAP) Pulse Ox O2 Delivery O2 Flow Rate FiO2 12/29/16 18:00 87 12/29/16 17:50 90 12/29/16 17:49 70 12/29/16 16:12 90 100 12/29/16 16:00 98.9 94 23 63 12/29/16 16:00 94 12/29/16 16:00 100 12/29/16 14:41 102 88/54 12/29/16 14:00 101 12/29/16 12:37 116 89/55 12/29/16 12:00 100.6 118 22 86/60 (69) 12/29/16 12:00 118 12/29/16 12:00 100 12/29/16 10:35 117 102/75 12/29/16 10:00 119 12/29/16 09:51 90 100 12/29/16 09:13 117 69/49 12/29/16 08:00 100.5 119 21 89/51 (64) 93 12/29/16 08:00 119 12/29/16 08:00 100 12/29/16 07:33 119 87/51 12/29/16 06:00 116 12/29/16 04:10 93 80 12/29/16 04:00 100.9 120 22 85/53 (64) 94 12/29/16 04:00 120 12/29/16 04:00 80 12/29/16 02:11 121 104/57 12/29/16 02:00 121 12/29/16 00:40 93 80 12/29/16 00:00 99.9 122 24 103/56 (72) 92 12/29/16 00:00 40 12/29/16 00:00 122 12/28/16 23:49 92 100 12/28/16 22:00 117 12/28/16 20:38 95 40 12/28/16 20:00 99.5 113 22 99/65 (76) 95 12/28/16 20:00 113 12/28/16 20:00 40 -: 12/29/16 0410 12/29/16 0410 Microbiology 12/29/16 Aerobic Blood Culture, Received Pending 12/29/16 Anaerobic Blood Culture, Received Pending Physical Exam General Appearance Remarks Intubated and sedated. Eyes Eye Exam: Pupils Equal Throat Throat Exam: Oral Mucosa [place] & Moist Pulmonary Resp Exam: Breath Sounds Equal, Rhonchi, Decreased Bases, Diminished Breath Sounds, Poor Inspiratory Effort Cardiology CV Exam: Regular, Normal Sinus Rhythm Gastrointestinal/Abdomen GI Exam: Soft, Non-Tender, Bowel Sounds Present Extremeties Extremities Exam: Trace Edema Neurologic Neuro Exam: Sedated Assessment/Plan Assessment Summary: DAVY/Acute Renal Failure, Hypotension Electrolyte Assessment: Hyperkalemia, Metabolic Acidosis Problem List: (1) Rhabdomyolysis ICD Codes: M62.82 - Rhabdomyolysis (2) Acute metabolic encephalopathy ICD Codes: G93.41 - Metabolic encephalopathy Status: Acute (3) Respiratory arrest ICD Codes: R09.2 - Respiratory arrest Status: Acute (4) Polysubstance overdose ICD Codes: T50.901A - Poisoning by unspecified drugs, medicaments and biological substances, accidental (unintentional), initial encounter Status: Acute (5) NSTEMI (non-ST elevated myocardial infarction) ICD Codes: I21.4 - Non-ST elevation (NSTEMI) myocardial infarction (6) Multiple organ failure with liver failure ICD Codes: K72.90 - Hepatic failure, unspecified without coma (7) Acute kidney injury ICD Codes: N17.9 - Acute kidney failure, unspecified Status: Acute Plan Patient remain on the vent. and on pressors. BP is low. Has multiorgan failure. Lactic acid increasing due to shock. CPK also increasing. K was normal and Hco3 decrease to 19.6. Lactic acid increasing due to hypotension and shock. On 40% Fio2. D/W Dr. Bliss, started on CRRT. Replacing Hco3. Removing 100 ml per hr. Follow the BMP and electrolytes. D/W the mother at bed side. Problem Qualifiers (1) Polysubstance overdose: Qualified Codes: T50.904A - Poisoning by unspecified drugs, medicaments and biological substances, undetermined, initial encounter Brandy Ortiz MD Dec 29, 2016 19:58
[2016-12-30 13:41] LABS: ALPHA-1-ANTITRYPSIN 202 mg/dL (100 - 190)
[2016-12-30 14:21] LABS: SMOOTH MUSCLE TOTAL AUTOABS Negative (Negative)
[2017-01-01 03:51] LABS: MITOCHONDRIAL ABS LESS THAN 20.0 U (<=20.0)
[2017-01-01 17:50] LABS: CERULOPLASMIN 38 mg/dL (18-53)
== END 2016-12-30 00:17 | disposition expired | DRG 208 ==
LOC: NEPC 04:20 → NEDA 05:47 → EDBD 05:47 → HIMW 07:57
PROVIDERS: ADMIT Internal Medicine Critical Care Medicine; ATTEND Internal Medicine Critical Care Medicine
PROC: 5A1945Z Respiratory Ventilation, 24-96 Consecutive Hours (ICD-10-PCS; principal; 2016-12-27)
PROC: 05HM33Z Insertion of Infusion Device into Right Internal Jugular Vein, Percutaneous Approach (ICD-10-PCS; 2016-12-29)
PROC: B543ZZA Ultrasonography of Right Jugular Veins, Guidance (ICD-10-PCS; 2016-12-29)
PROC: 05HN33Z Insertion of Infusion Device into Left Internal Jugular Vein, Percutaneous Approach (ICD-10-PCS; 2016-12-29)
PROC: B544ZZA Ultrasonography of Left Jugular Veins, Guidance (ICD-10-PCS; 2016-12-29)
PROC: 5A1D90Z Performance of Urinary Filtration, Continuous, Greater than 18 hours Per Day (ICD-10-PCS; 2016-12-29)
DX: J96.01 Acute respiratory failure with hypoxia (principal); K72.00 Acute and subacute hepatic failure without coma; I21.4 Non-ST elevation (NSTEMI) myocardial infarction; R65.21 Severe sepsis with septic shock; J69.0 Pneumonitis due to inhalation of food and vomit; A41.9 Sepsis, unspecified organism; I95.9 Hypotension, unspecified; E87.2 Acidosis; D68.9 Coagulation defect, unspecified; N17.9 Acute kidney failure, unspecified; Z99.11 Dependence on respirator [ventilator] status; M62.82 Rhabdomyolysis; E87.5 Hyperkalemia; D64.9 Anemia, unspecified; E16.2 Hypoglycemia, unspecified; F19.10 Other psychoactive substance abuse, uncomplicated; T50.901A Poisoning by unspecified drugs, medicaments and biological substances, accidental (unintentional), initial encounter; J44.9 Chronic obstructive pulmonary disease, unspecified; G40.909 Epilepsy, unspecified, not intractable, without status epilepticus; F17.210 Nicotine dependence, cigarettes, uncomplicated; G89.29 Other chronic pain; F43.10 Post-traumatic stress disorder, unspecified; E66.9 Obesity, unspecified; Z68.38 Body mass index [BMI] 38.0-38.9, adult
CPT/HCPCS: 36556; 36600; 70450; 71010; 73120; 74000; 74176; 76700; 76937; 80048; 80053; 80074; 80076; 80202; 80307; 81001; 82103; 82105; 82140; 82150; 82248; 82390; 82550; 82552; 82728; 82805; 82948; 83520; 83540; 83550; 83605; 83690; 84132; 84155; 84484; 85007; 85025; 85027; 85610; 85730; 86038; 86255; 86403; 87040; 87070; 87077; 87147; 87186; 87205; 87641; 92950; 93005; 93306; 94002; 94003; 94640; 94664; J0132; J0171; J0610; J1265; J1644; J1720; J1815; J2020; J2248; J2310; J2370; J2543; J3370; J7030; J7040; J7042; J7050; J7060; J7070